=== PATIENT | male | born 1930 | race Caucasian/White ===

== ENCOUNTER 2016-11-27 20:14 | Inpatient (IN) | payer MEDICARE ==
[2016-11-27] MEDS ORDERED: SODIUM CHLORIDE 0.9% 1,000 ML IV STA (20:52)
[2016-11-27] MEDS ORDERED: FUROSEMIDE 10 MG/ML 4 ML VIAL IV STA (20:53)
--- NOTE | 2016-11-27 20:56 | ED ---
SOB HPI - General Chief Complaint: Shortness of Breath Stated Complaint: SOB/bloated/weak Time Seen by Provider: 11/27/16 20:40 Source: patient, RN notes reviewed Mode of arrival: EMS Limitations: no limitations - History of Present Illness Initial Comments: This is a 86-year-old male history of CHF who is brought in because of increasing shortness of breath exertional dyspnea and edema to his lower extremities no ascending up in his abdomen. He denies any fevers chills sweats chest pain he denies any history of COPD he does have a history of CHF. He denies any palpitations or syncope after 7-10 days but much worse today. He denies any other complaints at this time MD Complaint: shortness of breath - Related Data Home Medications Medication Instructions Recorded Confirmed Allopurinol [Zyloprim] 100 mg PO BID 12/12/14 11/27/16 Pravastatin Sodium [Pravachol] 20 mg PO HS 12/12/14 11/27/16 Timolol 0.5% Ophth Soln [Timoptic 1 drop LEFT EYE QAM 12/12/14 11/27/16 0.5% Ophth Soln] Sennosides-Docusate Sodium 1 tab PO HS 10/26/15 11/27/16 [Senokot-S] Furosemide [Lasix] 100 mg PO DAILY 01/30/16 11/27/16 ALPRAZolam [Xanax] 0.25 mg PO TID PRN 01/31/16 11/27/16 Nitroglycerin Sl Tabs [Nitrostat] 0.4 mg SUBLINGUAL Q5M PRN 01/31/16 11/27/16 Bisacodyl [Dulcolax] 5 mg PO HS 11/27/16 11/27/16 Calcium Acetate [Phoslo] 667 mg PO W/BRKFST 11/27/16 11/27/16 Epoetin Osiel [Procrit] 20,000 unit SQ TH 11/27/16 11/27/16 Folic Acid 0.8 mg PO DAILY 11/27/16 11/27/16 Latanoprost [Xalatan 0.005%] 1 drop BOTH EYES HS 11/27/16 11/27/16 Multivitamins, Thera [Multivitamin 1 tab PO DAILY 11/27/16 11/27/16 (formulary)] Sodium Chloride 0.65% Nasal [Deep 2 spray EA NOSTRIL QID PRN 11/27/16 11/27/16 Sea (Saline)] Thiamine [Vitamin B-1] 100 mg PO DAILY 11/27/16 11/27/16 Previous Rx's Medication Instructions Recorded Metoprolol Tartrate [Lopressor] 25 mg PO BID #60 tab 02/03/16 Allergies Allergy/AdvReac Type Severity Reaction Status Date / Time Penicillins Allergy Rash/Hives Verified 11/27/16 20:40 Review of Systems ROS Statement: Those systems with pertinent positive or pertinent negative responses have been documented in the HPI. ROS Other: All systems not noted in ROS Statement are negative. Past Medical History Past Medical History: Atrial Fibrillation, Coronary Artery Disease (CAD), Cancer , Heart Failure, Hyperlipidemia, Hypertension, Osteoarthritis (OA), Prostate Disorder, Renal Disease Additional Past Medical History / Comment(s): melenoma BPH, gout 5 years ago, glaucoma lt eye,"gets freguent nose bleeds", murmur, rhuematic fever age 19, iron deficiency, rt inguinal hernia. History of Any Multi-Drug Resistant Organisms: None Reported Past Surgical History: AICD, Coronary Bypass/CABG, Heart Catheterization, Hernia Repair, Joint Replacement, Orthopedic Surgery, Pacemaker Additional Past Surgical History / Comment(s): carotid, Triple artery bypass in 1978. left knee right hip replacement. Right carotid endartectomy. pt has hernia Past Anesthesia/Blood Transfusion Reactions: No Reported Reaction Additional Past Anesthesia/Blood Transfusion Reaction / Comment(s): blood transfusion-no reaction Type of Cardiac Device: Permanent Pacemaker, AICD Device Placement Date:: 2011 Past Psychological History: No Psychological Hx Reported Smoking Status: Former smoker Past Alcohol Use History: None Reported Additional Past Alcohol Use History / Comment(s): started smoking here and there at age 16 but strted smoking daily at age 22 1ppd, quit age 36 Past Drug Use History: None Reported - Past Family History Father Family Medical History: Coronary Artery Disease (CAD), CVA/TIA Additional Family Medical History / Comment(s): CABG Mother Family Medical History: Congestive Heart Failure (CHF), CVA/TIA, Hypertension Brother(s) Family Medical History: Congestive Heart Failure (CHF) Additional Family Medical History / Comment(s): CABG, valve replacement General Exam - General Exam Comments Initial Comments: This is a well-developed well-nourished awake alert oriented 3 male Limitations: no limitations General appearance: alert, in no apparent distress Head exam: Present: atraumatic, normocephalic, normal inspection Eye exam: Present: normal appearance, PERRL, EOMI. Absent: scleral icterus, conjunctival injection, periorbital swelling ENT exam: Present: normal exam, mucous membranes moist Neck exam: Present: normal inspection. Absent: tenderness, meningismus, lymphadenopathy Respiratory exam: Present: rales (Slight basilar rales patient does demonstrate kyphosis), decreased breath sounds. Absent: respiratory distress, wheezes, rhonchi, stridor Cardiovascular Exam: Present: regular rate, normal rhythm, normal heart sounds. Absent: systolic murmur, diastolic murmur, rubs, gallop, clicks GI/Abdominal exam: Present: soft, distended, normal bowel sounds. Absent: tenderness, guarding, rebound, rigid, bruit, pulsatile mass, hernia Rectal exam: Present: deferred Extremities exam: Present: normal inspection, full ROM, normal capillary refill , pedal edema (+2 pedal edema to the knees.). Absent: tenderness, joint swelling, calf tenderness Back exam: Present: normal inspection Neurological exam: Present: alert, oriented X3, CN II-XII intact Psychiatric exam: Present: normal affect, normal mood Skin exam: Present: warm, dry, intact, normal color. Absent: rash Course Vital Signs 11/27/16 11/27/16 11/27/16 20:21 20:46 21:54 Temperature 97.5 F L 97.3 F L Pulse Rate 61 64 Respiratory 18 18 18 Rate Blood Pressure 112/62 121/57 O2 Sat by Pulse 100 100 Oximetry 11/27/16 23:15 Temperature 97.1 F L Pulse Rate 63 Respiratory 18 Rate Blood Pressure 131/63 O2 Sat by Pulse 97 Oximetry - Reevaluation(s) Reevaluation #1: 11/27/16 21:01 Of note the patient did recently start a regimen of Procrit for anemia within the last couple weeks. Reevaluation #2: 11/27/16 23:44 Patient did not get much relief so far with the medication was rendered. Medical Decision Making - Medical Decision Making I did discuss the findings with the patient and his . Patient does demonstrate evidence of congestive heart failure. And treatment. - Lab Data Result diagrams: 11/27/16 20:40 11/27/16 20:40 Lab Results 11/27/16 11/27/16 11/27/16 Range/Units 20:40 20:40 20:40 WBC 6.8 (3.8-10.6) k/uL RBC 2.77 L (4.30-5.90) m/uL Hgb 9.9 L (13.0-17.5) gm/dL Hct 30.2 L (39.0-53.0) % MCV 108.9 H (80.0-100.0) fL MCH 35.6 H (25.0-35.0) pg MCHC 32.7 (31.0-37.0) g/dL RDW 21.6 H (11.5-15.5) % Plt Count 93 L (150-450) k/uL Neutrophils % 80 % Lymphocytes % 9 % Monocytes % 6 % Eosinophils % 1 % Basophils % 0 % Neutrophils # 5.4 (1.3-7.7) k/uL Lymphocytes # 0.6 L (1.0-4.8) k/uL Monocytes # 0.4 (0-1.0) k/uL Eosinophils # 0.1 (0-0.7) k/uL Basophils # 0.0 (0-0.2) k/uL Manual Slide Review Performed Hypochromasia Slight Poikilocytosis Slight Anisocytosis Moderate Macrocytosis Marked PT (9.0-12.0) sec INR (<1.1) APTT (22.0-30.0) sec Sodium 137 (137-145) mmol/L Potassium 3.8 (3.5-5.1) mmol/L Chloride 99 (98-107) mmol/L Carbon Dioxide 24 (22-30) mmol/L Anion Gap 14 mmol/L BUN 107 H* (9-20) mg/dL Creatinine 2.40 H (0.66-1.25) mg/dL Est GFR (MDRD) Af Amer 31 (>60 ml/min/1.73 sqM) Est GFR (MDRD) Non-Af 26 (>60 ml/min/1.73 sqM) Glucose 107 H (74-99) mg/dL Calcium 9.6 (8.4-10.2) mg/dL Magnesium 2.3 (1.6-2.3) mg/dL Total Bilirubin 1.6 H (0.2-1.3) mg/dL AST 27 (17-59) U/L ALT 26 (21-72) U/L Alkaline Phosphatase 85 (38-126) U/L Total Creatine Kinase 43 L (55-170) U/L CK-MB (CK-2) 2.8 H* (0.0-2.4) ng/mL CK-MB (CK-2) Rel Index 6.5 Troponin I 0.060 H* (0.000-0.034) ng/mL NT-Pro-B Natriuret Pep pg/mL Total Protein 7.0 (6.3-8.2) g/dL Albumin 3.5 (3.5-5.0) g/dL 11/27/16 11/27/16 Range/Units 20:40 20:40 WBC (3.8-10.6) k/uL RBC (4.30-5.90) m/uL Hgb (13.0-17.5) gm/dL Hct (39.0-53.0) % MCV (80.0-100.0) fL MCH (25.0-35.0) pg MCHC (31.0-37.0) g/dL RDW (11.5-15.5) % Plt Count (150-450) k/uL Neutrophils % % Lymphocytes % % Monocytes % % Eosinophils % % Basophils % % Neutrophils # (1.3-7.7) k/uL Lymphocytes # (1.0-4.8) k/uL Monocytes # (0-1.0) k/uL Eosinophils # (0-0.7) k/uL Basophils # (0-0.2) k/uL Manual Slide Review Hypochromasia Poikilocytosis Anisocytosis Macrocytosis PT 29.9 H (9.0-12.0) sec INR 3.1 (<1.1) APTT 46.7 H (22.0-30.0) sec Sodium (137-145) mmol/L Potassium (3.5-5.1) mmol/L Chloride (98-107) mmol/L Carbon Dioxide (22-30) mmol/L Anion Gap mmol/L BUN (9-20) mg/dL Creatinine (0.66-1.25) mg/dL Est GFR (MDRD) Af Amer (>60 ml/min/1.73 sqM) Est GFR (MDRD) Non-Af (>60 ml/min/1.73 sqM) Glucose (74-99) mg/dL Calcium (8.4-10.2) mg/dL Magnesium (1.6-2.3) mg/dL Total Bilirubin (0.2-1.3) mg/dL AST (17-59) U/L ALT (21-72) U/L Alkaline Phosphatase (38-126) U/L Total Creatine Kinase (55-170) U/L CK-MB (CK-2) (0.0-2.4) ng/mL CK-MB (CK-2) Rel Index Troponin I (0.000-0.034) ng/mL NT-Pro-B Natriuret Pep 27575 pg/mL Total Protein (6.3-8.2) g/dL Albumin (3.5-5.0) g/dL - EKG Data -: EKG Interpreted by Me (Paced rhythm of 66 QRS of 172 QT/QTC of 5:30/555 unifocal PVC noted. No ac) - Radiology Data Radiology results: report reviewed (I did review the imaging and report is evidence of heart failure with small right pleural effusion.), image reviewed Critical Care Time Critical Care Time: Yes Critical Care Time: 31 minutes of critical care time which includes initial presentation with history physical labs and x-rays reevaluation the patient response to therapy. Discussion with the patient has regarding findings discussed with the evening physician admission orders and documentation of the above. Disposition Clinical Impression: Congestive heart failure (CHF), Renal insufficiency syndrome, Elevated troponin , Chronic anemia Disposition: ADMITTED IP TO THIS [facility] Condition: Stable Referrals: Abad Blair DO [Primary Care Provider] - 1-2 days
[2016-11-27 21:07] LABS: Anisocytosis Moderate; Basophils % (A) 0 %; CH 35.2; CHCM 32.8; Eosinophils # (A) 0.1 k/uL (0-0.7); Eosinophils % (A) 1 %; HCT 30.2 % (39.0-53.0); HGB 9.9 gm/dL (13.0-17.5); Hypochromasia Slight; Luc # (Auto) 0.27; Luc % (Auto) 4; Lymphocytes # (A) 0.6 k/uL (1.0-4.8); Lymphocytes % (A) 9 %; MCH 35.6 pg (25.0-35.0); MCHC 32.7 g/dL (31.0-37.0); MCV 108.9 fL (80.0-100.0); Macrocytosis Marked; Mean Platelet Volume 8.7; Monocytes # (A) 0.4 k/uL (0-1.0); Monocytes % (A) 6 %; Neutrophils # (A) 5.4 k/uL (1.3-7.7); Neutrophils % (A) 80 %; Poikilocytosis Slight; RBC 2.77 m/uL (4.30-5.90); RDW 21.6 % (11.5-15.5); WBC 6.8 k/uL (3.8-10.6); WBC (Perox) 6.93
--- NOTE | 2016-11-27 21:17 | XR ---
EXAMINATION TYPE: XR chest 2V DATE OF EXAM: 11/27/2016 9:11 PM COMPARISON: 816 HISTORY: Short of breath TECHNIQUE: Frontal and lateral views of the chest are obtained. FINDINGS: Heart is enlarged. There is some mild pulmonary vascular congestion. There is slight blunt ing of right costophrenic angle. There is a left axillary pacemaker with lead tips in the right ventr icle. Thoracic aorta is atheromatous. There are sternal wires. IMPRESSION: Mild heart failure with small right pleural effusion. Chest appears slightly worse than last exam.
[2016-11-27 21:18] LABS: Calcium 9.6 mg/dL (8.4-10.2); Magnesium 2.3 mg/dL (1.6-2.3); Potassium 3.8 mmol/L (3.5-5.1); Total Bilirubin 1.6 mg/dL (0.2-1.3)
[2016-11-27 21:20] LABS: INR 3.1 (<1.1); Prothrombin Time 29.9 sec (9.0-12.0)
[2016-11-27 21:21] LABS: Partial Thromboplastin Time 46.7 sec (22.0-30.0)
[2016-11-27 21:27] LABS: Manual Review Performed
[2016-11-27 21:50] LABS: Creatine Kinase MB 2.8 ng/mL (0.0-2.4)
[2016-11-27 21:51] LABS: Troponin I 0.06 ng/mL (0.000-0.034)
[2016-11-27] MEDS ORDERED: SODIUM CHLORIDE 0.65% NASAL SPRAY 44 ML BTL NASAL PRN (23:48)
[2016-11-28] MEDS ORDERED: SENNOSIDES-DOCUSATE SODIUM 1 EACH TAB PO ONE (01:57)
[2016-11-28] MEDS ORDERED: BISACODYL 5 MG TABLET.DR PO ONE (01:57)
[2016-11-28] MEDS: SENNOSIDES-DOCUSATE SODIUM 1 EACH TAB PO SCH ×2 (02:06→20:28)
[2016-11-28] MEDS: BISACODYL 5 MG TABLET.DR PO SCH ×2 (02:06→20:34)
[2016-11-28] MEDS: FUROSEMIDE 10 MG/ML 4 ML VIAL IV SCH ×3 (02:06→23:06)
[2016-11-28] MEDS: PRAVASTATIN SODIUM 20 MG TAB PO SCH ×2 (02:06→20:28)
[2016-11-28] MEDS: SODIUM CHLORIDE 0.9% 1,000 ML IV SCH ×2 (02:07→23:07)
[2016-11-28] MEDS: CALCIUM ACETATE 667 MG CAP PO SCH (06:54)
[2016-11-28 08:52] LABS: Anisocytosis Moderate; Basophils % (A) 0 %; CH 34.9; CHCM 31.7; Eosinophils # (A) 0.1 k/uL (0-0.7); Eosinophils % (A) 1 %; HCT 28.4 % (39.0-53.0); HDW 3.81; HGB 8.9 gm/dL (13.0-17.5); Hypochromasia Marked; Luc # (Auto) 0.22; Luc % (Auto) 4; Lymphocytes # (A) 0.6 k/uL (1.0-4.8); Lymphocytes % (A) 11 %; MCH 34.9 pg (25.0-35.0); MCHC 31.3 g/dL (31.0-37.0); MCV 111.5 fL (80.0-100.0); Macrocytosis Marked; Mean Platelet Volume 9.6; Monocytes # (A) 0.3 k/uL (0-1.0); Monocytes % (A) 6 %; Neutrophils # (A) 4.2 k/uL (1.3-7.7); Neutrophils % (A) 77 %; Poikilocytosis Slight; RBC 2.55 m/uL (4.30-5.90); RDW 21.8 % (11.5-15.5); WBC 5.5 k/uL (3.8-10.6); WBC (Perox) 5.72
[2016-11-28] MEDS ORDERED: ENOXAPARIN 40 MG/0.4 ML SYRINGE SQ SCH (09:00)
[2016-11-28 09:09] LABS: Calcium 8.9 mg/dL (8.4-10.2); Potassium 3.5 mmol/L (3.5-5.1)
[2016-11-28] MEDS: ALLOPURINOL 100 MG TAB PO SCH ×2 (09:15→20:28)
[2016-11-28] MEDS: FOLIC ACID 1 MG TAB PO SCH (09:15)
[2016-11-28] MEDS: METOPROLOL TARTRATE 25 MG TAB PO SCH ×2 (09:15→20:28)
--- NOTE | 2016-11-28 09:42 | CONS ---
DATE OF CONSULTATION: Imer is an 86-year-old gentleman who is admitted to hospital with shortness of breath, leg edema and exertional fatigue. His BNP is elevated and he has known history of chronic systolic heart failure. BNP is 39,000. At the time of my evaluation this morning, he is pain free, hemodynamically stable and in no apparent distress. Past medical history is significant for coronary artery disease, status post CABG, ischemic cardiomyopathy, status post AICD, chronic renal insufficiency, right endarterectomy, and left knee arthroplasty. Medications at home include Timoptic, thiamine, Pravachol, Lopressor 25 b.i.d., Lasix 100 mg daily, folic acid 0.8, PhosLo, Dulcolax, Zyloprim and Xanax. The patient is allergic to PENICILLIN. Family history is negative for premature coronary artery disease. Social history is negative for current smoking, EtOH abuse, or drug abuse. REVIEW OF SYSTEMS: HEENT: Unremarkable. CARDIAC: As described above. RESPIRATORY: As described above. GI: Negative. GENITOURINARY: Negative. ALLERGY/IMMUNOLOGY: Negative. MUSCULOSKELETAL: Significant for arthritis. PSYCHOSOCIAL: Negative. ENDOCRINE: Negative. HEMATOLOGIC: Negative. DERMATOLOGY: Negative. CONSTITUTIONAL: Negative. ONCOLOGICAL: Negative. The rest of the system review is not relevant. On exam, patient is afebrile, heart rate is 56 beats per minute, blood pressure 106/61, respirations 18. There is no jugular venous distention. Carotid upstroke is normal. Chest exam reveals good air entry bilaterally. Heart exam reveals first and second heart sounds. Systolic murmur at the left lower sternal border. Abdomen is soft. Exam of the extremities did not reveal any edema. Peripheral pulses are felt. Patient had an echo done last year that showed severe LV systolic dysfunction. Labs show that he is anemic at 8.9. INR is 3.1. Troponins are mildly elevated and BNP is 39,000. ASSESSMENT: 1. Acute exacerbation of chronic systolic heart failure. 2. Coronary artery disease, status post CABG. 3. Ischemic cardiomyopathy, status post AICD. 4. History of atrial fibrillation. PLAN: I will continue the patient on Lasix 40 mg IV q.12. Continue the beta blockers. Continue the statin. I am not adding an PHIL inhibitor given the renal failure with elevated BUN and creatinine.
--- NOTE | 2016-11-28 10:04 | ECHOF ---
Referral Reason:chf MEASUREMENTS -------- HEIGHT: 167.6 cm WEIGHT: 68.5 kg BP: 106/61 RVIDd: 3.9 cm (< 3.3) IVSd: 1.3 cm (0.6 - 1.1) LVIDd: 5.3 cm (3.9 - 5.3) LVPWd: 1.3 cm (0.6 - 1.1) IVSs: 1.5 cm LVIDs: 4.7 cm LVPWs: 1.8 cm LA Diam: 5.1 cm (2.7 - 3.8) LAESV Index (A-L): 47.10 ml/m Ao Diam: 3.9 cm (2.0 - 3.7) AV Cusp: 2.1 cm (1.5 - 2.6) MV EXCURSION: 19.783 mm (> 18.000) MV EF SLOPE: 77 mm/s (70 - 150) EPSS: 1.4 cm AR PHT: 670 ms RAP: 5.00 mmHg RVSP: 48.77 mmHg FINDINGS -------- Pacerwire seen in RV and RA. AICD This was a technically good study. The left ventricular size is normal. There is mild concentric left ventricular hypertrophy. Overall left ventricular systolic function is severely impaired with, an EF between 20 - 25 %. The right ventricle is moderately enlarged. LA is severely dilated >40 ml/m2 The right atrium is normal in size. Aortic valve is trileaflet and is mildly thickened. There is mild aortic regurgitation. Mild mitral annular calcification present. [id number] mitral regurgitation is present. Moderate to severe tricuspid regurgitation present. There is moderate pulmonary hypertension. The right ventricular systolic pressure, as measured by Doppler, is 48.77mmHg. Moderate pulmonic regurgitation. The aortic root is dilated measuring 3.9cm. The pericardium is normal. CONCLUSIONS -------- 1. Pacerwire seen in RV and RA. 2. There is mild aortic regurgitation. 3. Mild mitral annular calcification present. 4. [id number] mitral regurgitation is present. 5. Moderate to severe tricuspid regurgitation present. 6. There is moderate pulmonary hypertension. 7. The right ventricular systolic pressure, as measured by Doppler, is 48.77mmHg. 8. Moderate pulmonic regurgitation. 9. The aortic root is dilated measuring 3.9cm. 10. The pericardium is normal. 11. AICD 12. This was a technically good study. 13. The left ventricular size is normal. 14. There is mild concentric left ventricular hypertrophy. 15. Overall left ventricular systolic function is severely impaired with, an EF between 20 - 25 %. 16. The right ventricle is moderately enlarged. 17. LA is severely dilated >40 ml/m2 18. Aortic valve is trileaflet and is mildly thickened. OPERATING TABLE ASSEMBLER: Darlene Doty RDCS
[2016-11-28] MEDS: TIMOLOL 0.5% OPHTH DROPS 5 ML BTL LEFT EYE SCH (11:24)
[2016-11-28] MEDS: THIAMINE 100 MG TAB PO SCH (11:25)
[2016-11-28] MEDS: MULTIVITAMINS, THERA 1 EACH TAB PO SCH (11:25)
[2016-11-28] MEDS: NITROGLYCERIN OINT 1 INCH/GM PACKET TOPICAL SCH ×4 (11:31→20:29)
--- NOTE | 2016-11-28 13:50 | HP ---
DATE OF ADMISSION: 11/27/2016 PRESENTING COMPLAINT: Short of breath. HISTORY OF PRESENTING COMPLAINT: A very pleasant 86-year-old patient of Dr. Abad Guillory with a rather extensive medical history. Patient presents with 10 days of worsening short of breath, uses about 2 or 3 pillows, increasing edema, found to be in congestive heart failure. Patient has a very slight cough. Had a decreased appetite, given Lasix to which he feeling a bit better. Patient's chronic stable medical conditions include atrial fibrillation, coronary artery disease, hyperlipidemia, hypertension, osteoarthritis, prostate disorder, chronic kidney disease, gout. Patient also has got an AICD in place. REVIEW OF SYSTEMS: CONSTITUTIONAL: Weak and tired. HEENT: Decreased hearing. RESPIRATORY: As above. CARDIOVASCULAR: As above. GASTROINTESTINAL: None. GENITOURINARY: None. MUSCULOSKELETAL: Aches and pains in the joints. DERMATOLOGICAL: Some bruising. HEMATOLOGICAL: None. LYMPHATIC: None. PSYCHIATRY: None. NEUROLOGICAL: None. PAST MEDICAL HISTORY: Atrial fibrillation, coronary artery disease, congestive heart failure, hyperlipidemia, hypertension, osteoarthritis, prostate disorder, renal disease, melanoma, BPH, gout, glaucoma, frequent epistaxis, rheumatic fever at age of 19, right inguinal hernia. PAST SURGICAL HISTORY: AICD, coronary artery bypass, cardiac cath, joint replacement, pacemaker, left knee and right hip replacement, right carotid endarterectomy. SOCIAL HISTORY: Does not smoke. Alcohol occasionally. , uses a cane. FAMILY HISTORY: Coronary artery disease, stroke. HOME MEDICATIONS: 1. Procrit 20,000 units subQ . 2. Timoptic 0.5% 1 drop to left eye in the morning. 3. Thiamine 100 mg p.o. daily. 4. Saline two sprays each nostril q.i.d. p.r.n. 5. Senokot-S 1 tablet p.o. q.h.s. 6. Pravachol 20 mg q.h.s. 7. Nitrostat 0.4 sublingual q.5 p.r.n. 8. Multivitamin 1 tablet p.o. daily. 9. Lopressor 25 p.o. b.i.d. 10. Xalatan 0.005% 1 drop in both eyes q.h.s. 11. Lasix 100 mg p.o. daily. 12. Folic acid 0.8 mg p.o. daily. 13. PhosLo 667 p.o. with breakfast. 14. Dulcolax 5 mg p.o. q.h.s. 15. Allopurinol 100 mg p.o. b.i.d. 16. Xanax 0.25 p.o. t.i.d. p.r.n. Allergies to PENICILLIN. PHYSICAL EXAMINATION: Vital signs on admission, temperature 97.5, pulse 55, respirations 18, blood pressure 112/62, pulse ox 100% on room air. GENERAL APPEARANCE: Average build, sitting up, tired-appearing. EYES: Pupils equal. Conjunctivae are normal. HEENT: Oral cavity normal. NECK: JVD raised. Mass not palpable. RESPIRATORY: Effort increased. LUNGS: Basal crackles. CARDIOVASCULAR: First and second sounds normal. Edema present. ABDOMEN: Soft, nontender. Liver and spleen not palpable. LYMPHATIC: No lymph node palpable in neck or axillae. PSYCHIATRY: Alert and oriented x3. Mood and affect normal. MUSCULOSKELETAL: Evidence of osteoarthritis in multiple joints. NEUROLOGICAL: Pupils equal. Cranial nerves grossly intact. Power and sensation grossly intact. INVESTIGATIONS: White count 6.8, hemoglobin 9.9, platelets 93, INR 3.1. Potassium 3.8, BUN 107, creatinine 2.4, troponin 0.060, proBNP 39,100. Chest x-ray, some elevation of the right diaphragm, cardiomegaly, some venous prominence. A 2-D echocardiogram shows moderate to severe tricuspid regurgitation, moderate pulmonary hypertension, moderate pulmonic regurgitation, AICD, EF 20% to 25%. ASSESSMENT: 1. Acute on chronic congestive heart failure exacerbation from systolic dysfunction; ejection fraction 20% to 25%, from underlying coronary artery disease. 2. Morbid pulmonic regurgitation, nonrheumatic. 3. Moderate pulmonary hypertension. 4. Moderate to severe tricuspid regurgitation, nonrheumatic. 5. Coronary artery disease with prior history coronary artery bypass. 6. Hyperlipidemia. 7. Essential hypertension. 8. Primary osteoarthritis of multiple joints. 9. Benign prostatic hypertrophy. 10. 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 11. Chronic gout. 12. Right inguinal hernia. PLAN: Patient was started on IV Lasix. Home medication are resumed. Electrolytes will be followed closely with bradycardia and a Nephrology opinion. Overall prognosis is guarded, given patient's age and multiple comorbidities. Care was discussed with the patient.
[2016-11-28 14:16] VITALS: BMI 24.3
[2016-11-28] MEDS: LATANOPROST 0.005% OPHTH DROPS 2.5 ML BTL BOTH EYES SCH (22:01)
[2016-11-29 06:27] LABS: Anisocytosis Moderate; Basophils % (A) 0 %; CHCM 31.3; Eosinophils # (A) 0.1 k/uL (0-0.7); Eosinophils % (A) 1 %; HCT 31.1 % (39.0-53.0); HDW 3.55; HGB 9.4 gm/dL (13.0-17.5); Hypochromasia Marked; Luc # (Auto) 0.24; Luc % (Auto) 4; Lymphocytes # (A) 0.6 k/uL (1.0-4.8); Lymphocytes % (A) 9 %; MCH 34.3 pg (25.0-35.0); MCHC 30.2 g/dL (31.0-37.0); MCV 113.5 fL (80.0-100.0); Macrocytosis Marked; Mean Platelet Volume 9.6; Monocytes # (A) 0.3 k/uL (0-1.0); Monocytes % (A) 5 %; Neutrophils % (A) 81 %; Poikilocytosis Slight; RBC 2.74 m/uL (4.30-5.90); RDW 21.7 % (11.5-15.5); WBC 6.2 k/uL (3.8-10.6); WBC (Perox) 6.29
[2016-11-29 06:46] LABS: Calcium 9.8 mg/dL (8.4-10.2); Potassium 3.7 mmol/L (3.5-5.1)
[2016-11-29] MEDS: CALCIUM ACETATE 667 MG CAP PO SCH (07:01)
[2016-11-29 07:28] LABS: Polychromasia Present; Target Cells Present
[2016-11-29 07:30] LABS: Manual Review Performed
[2016-11-29] MEDS: FOLIC ACID 1 MG TAB PO SCH (07:48)
[2016-11-29] MEDS: METOPROLOL TARTRATE 25 MG TAB PO SCH ×2 (07:48→20:29)
[2016-11-29] MEDS: ALLOPURINOL 100 MG TAB PO SCH ×2 (07:48→20:29)
[2016-11-29] MEDS: NITROGLYCERIN OINT 1 INCH/GM PACKET TOPICAL SCH ×4 (07:48→20:39)
[2016-11-29] MEDS: TIMOLOL 0.5% OPHTH DROPS 5 ML BTL LEFT EYE SCH (07:48)
[2016-11-29] MEDS: ENOXAPARIN 30 MG/0.3 ML SYRINGE SQ SCH (07:49)
[2016-11-29] MEDS: FUROSEMIDE 10 MG/ML 4 ML VIAL IV SCH ×2 (11:37→20:29)
[2016-11-29] MEDS: THIAMINE 100 MG TAB PO SCH (11:37)
[2016-11-29] MEDS: MULTIVITAMINS, THERA 1 EACH TAB PO SCH (11:37)
--- NOTE | 2016-11-29 11:54 | PN ---
DATE OF SERVICE: 11/29/2016 PRESENTING COMPLAINT: Shortness of breath. INTERVAL HISTORY: This is a patient who presented with acute on chronic exacerbation of congestive heart failure. Today patient is sitting up in the bed, breathing easily, tolerating his diet, able to walk to and from the bathroom on his own with no assistance. States he feels 60% better since he was admitted. Review of systems done for constitutional, cardiovascular, GI, and pulmonary and with relevant findings as above. PHYSICAL EXAM: VITAL SIGNS: Temperature 97.1, pulse 65, respirations 16, blood pressure 108/56, oxygen saturation 100% on room air. GENERAL APPEARANCE: Lying in bed, calm, cooperative, breathing easily. EYES: Pupils equal. Conjunctivae are normal. NECK: JVD raised. Mass not palpable. LUNGS: Crackles bilaterally. Respiratory effort normal. CARDIOVASCULAR: First and second sounds noted. Trace edema. ABDOMEN: Soft, nontender. Liver and spleen not palpable. PSYCHIATRY: Alert and oriented x3. Mood and affect are normal. INVESTIGATIONS: Hemoglobin 9.4, platelet count 83, BUN 112, creatinine 2.40. Echocardiogram reveals an EF between 20% and 25%. Patient is ventricular paced with an AICD. ASSESSMENT: 1. Acute on chronic congestive heart failure exacerbation from systolic dysfunction. Ejection fraction 20% to 25%, from underlying coronary artery disease, improving. 2. Morbid pulmonary regurgitation, nonrheumatic. 3. Moderate pulmonary hypertension. 4. Moderate to severe tricuspid regurgitation, nonrheumatic. 5. Coronary artery disease with prior history of coronary artery bypass. 6. Hyperlipidemia. 7. Essential hypertension. 8. Primary osteoarthritis of multiple joints. 9. Benign prosthetic hypertrophy. 10. 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 11. Chronic gout. 12. Right inguinal hernia. PLAN: Patient to remain on IV Lasix today, encouraged to get up walk around. Will continue to follow closely. Patient was seen and examined by nurse practitioner, Marnie Rodrigues, and all elements of the case discussed with attending, Dr. Bergman.
--- NOTE | 2016-11-29 13:44 | P.PN ---
Subjective Principal diagnosis: Congestive heart failure This is an 86-year-old gentleman with history of coronary artery disease and prior bypass surgery, ischemic cardiomyopathy, prior AICD implantation, chronic renal insufficiency, hypertension, hyperlipidemia, who presented to the hospital with symptoms of progressively worsening shortness of breath. He was seen in consultation yesterday by Dr. Vasquez and was initiated on IV Lasix. His weight today is down 1 kg. Hemoglobin 9.4, platelet count 83, potassium 3.7, BUN 112, creatinine 2.4. Patient does state that his breathing is somewhat improved today, continues to have significant peripheral edema. Objective - Vital Signs Vital signs: Vital Signs Temp 97.8 F 11/29/16 12:02 Pulse 65 11/29/16 12:02 Resp 17 11/29/16 12:02 BP 90/55 11/29/16 12:02 Pulse Ox 99 11/29/16 12:02 Intake & Output 11/28/16 11/29/16 11/29/16 18:59 06:59 18:59 Intake Total 200 125 Output Total 800 Balance 200 -800 125 Weight 68.5 kg 67.9 kg Intake: Oral 200 125 Output: Urine 800 Other: Voiding Method Toilet Toilet Toilet Urinal Urinal Urinal # Voids 0 - Exam PHYSICAL EXAMINATION: HEENT: Head is atraumatic, normocephalic. Pupils equal, round. Neck is supple. There is elevated jugular venous pressure. HEART EXAMINATION: Heart S1 and S2 systolic murmur is heard. CHEST EXAMINATION: Lungs are clear with diminished air entry to bilateral bases. ABDOMEN: Soft, nontender. Bowel sounds are heard. No organomegaly noted. EXTREMITIES: 2+ peripheral pulses with 2+ evidence of peripheral edema and no calf tenderness noted. NEUROLOGIC patient is awake, alert and oriented -3. . - Labs CBC & Chem 7: 11/29/16 06:04 11/29/16 06:02 Labs: Abnormal Lab Results - Last 24 Hours (Table) 11/29/16 11/29/16 Range/Units 06:02 06:04 RBC 2.74 L (4.30-5.90) m/uL Hgb 9.4 L (13.0-17.5) gm/dL Hct 31.1 L (39.0-53.0) % MCV 113.5 H (80.0-100.0) fL MCHC 30.2 L (31.0-37.0) g/dL RDW 21.7 H (11.5-15.5) % Plt Count 83 L (150-450) k/uL Lymphocytes # 0.6 L (1.0-4.8) k/uL BUN 112 H* (9-20) mg/dL Creatinine 2.40 H (0.66-1.25) mg/dL Glucose 102 H (74-99) mg/dL Assessment and Plan (1) Systolic CHF, acute on chronic Status: Acute (2) Renal insufficiency syndrome Status: Acute (3) AF (paroxysmal atrial fibrillation) Status: Acute (4) AICD (automatic cardioverter/defibrillator) present Status: Acute (5) Anemia Status: Acute (6) Chronic renal insufficiency Status: Acute (7) Hx of CABG Status: Acute (8) Hyperlipemia Status: Acute (9) Hypertension Status: Acute (10) Ischemic cardiomyopathy Status: Acute Plan: From cardiology's perspective, we will recommend to continue the patient on current dose of IV Lasix. Monitor intake and output along with daily weights closely. Continue to monitor PT/INR's. DNP note has been reviewed, I agree with a documented findings and plan of care. Patient was seen and examined.
[2016-11-29] MEDS: ALPRAZolam 0.25 MG TAB PO PRN (18:07)
[2016-11-29] MEDS: SENNOSIDES-DOCUSATE SODIUM 1 EACH TAB PO SCH (20:29)
[2016-11-29] MEDS: BISACODYL 5 MG TABLET.DR PO SCH (20:29)
[2016-11-29] MEDS: LATANOPROST 0.005% OPHTH DROPS 2.5 ML BTL BOTH EYES SCH (20:29)
[2016-11-29] MEDS: PRAVASTATIN SODIUM 20 MG TAB PO SCH (20:38)
[2016-11-29] MEDS: SODIUM CHLORIDE 0.9% 1,000 ML IV SCH (20:39)
--- NOTE | 2016-11-29 22:13 | CONS ---
DATE OF CONSULTATION: REASON FOR CONSULTATION: Renal failure. HISTORY OF PRESENT ILLNESS: Patient is an 86-year-old white male with history of chronic kidney disease, NKF stage IV, secondary to nephrosclerosis with a baseline creatinine about 1.9 to 2 mg/dL, most recently about 2.3 to 2.4 mg/dL. Recently patient has had significant gastrointestinal bleed as has had significant epistaxis, which resulted in significantly elevated BUN from absorption of the swallowed blood from epistaxis. His BUN; however, is now improved from around 153 to 106 now. Renal function is currently not far from baseline. Patient was admitted this admission with complaints of shortness of breath, increased lower extremity edema and some volume overload. He denied any chest pains. He is currently maintained on Lasix 40 mg IV q.12 hours and states that he is feeling better. Patient is maintained on Lovenox for paroxysmal atrial fibrillation. He has not had any further epistaxis currently. PAST MEDICAL HISTORY: Chronic kidney disease, stage IV, cardiomyopathy, paroxysmal atrial fibrillation, secondary hyperparathyroidism, anemia of chronic disease. CKD bone mineral disorder, coronary artery disease, osteoarthritis, history of iron deficiency and recent severe epistaxis, peripheral vascular disease status post right carotid endarterectomy. Surgeries include right carotid endarterectomy, left knee and the right hip arthroplasty and inguinal hernia repair, coronary artery bypass surgery, AICD placement, pacemaker placement. SOCIAL HISTORY: The patient is an ex-smoker. No history of drug abuse or alcohol abuse. FAMILY HISTORY: Noncontributory. REVIEW OF SYSTEMS: As per HPI. Other systems negative. Medications at home prior to admission included: 1. Zyloprim. 2. Pravachol. 3. Lasix. 4. Xanax. 5. Nitroglycerin. 6. PhosLo. 7. Procrit. 8. Folic acid. 9. Vitamin B1. 10. Lopressor. ALLERGIES INCLUDE PENICILLIN, WHICH CAUSES A RASH/HIVES. On examination, the patient is currently comfortable, awake. He is not in any acute distress alert and oriented x3. Blood pressure is 110/63, heart rate 98 per minute. He is afebrile. Examination of the heart S1 and S2. Examination of the lungs: Bilateral breath sounds are heard. Decreased breath sounds in bases. ABDOMEN: Soft, nontender. Examination of lower extremities shows edema 1+ bilaterally. [employer] exam is grossly intact. Labs show sodium 137, potassium 3.7, BUN 112, serum creatinine 2.4. Hemoglobin 9.4 g/dL. Troponin 0.059. ASSESSMENT: 1. Chronic kidney disease, NKF stage IV, secondary to nephrosclerosis with serum creatinine not far from baseline. The BUN has been disproportionately elevated for about a month now secondary to ongoing epistaxis, and absorption of some on the gastrointestinal tract. The BUN had been significantly high, about 150 to 160 mg/dL, it is now improved. 2. Paroxysmal atrial fibrillation with controlled ventricular response, maintained on Lovenox. 3. Anemia of chronic disease, maintained on Procrit as outpatient. 4. Coronary artery disease, status post coronary artery bypass surgery. 5. Chronic kidney disease bone mineral disorder, currently maintained on PhosLo. 6. Congestive heart failure, volume overload, greatly improved, currently on Lasix 40 mg q.12 hours. PLAN: Continue current dose of Lasix. Possible discharge in the next 24 to 48 hours. May continue current medications and continue with the PhosLo as well. Thank you for this consultation. Will continue to follow the patient with you during his hospitalization.
[2016-11-30] MEDS: ALPRAZolam 0.25 MG TAB PO PRN (01:09)
[2016-11-30 06:12] LABS: Anisocytosis Moderate; Basophils % (A) 0 %; CH 35.2; CHCM 31.5; Eosinophils # (A) 0.1 k/uL (0-0.7); Eosinophils % (A) 1 %; HCT 29.6 % (39.0-53.0); HDW 3.51; HGB 9.1 gm/dL (13.0-17.5); Hypochromasia Moderate; Luc # (Auto) 0.29; Luc % (Auto) 4; Lymphocytes # (A) 0.5 k/uL (1.0-4.8); Lymphocytes % (A) 8 %; MCHC 30.8 g/dL (31.0-37.0); MCV 113.5 fL (80.0-100.0); Macrocytosis Marked; Mean Platelet Volume 10.9; Monocytes # (A) 0.4 k/uL (0-1.0); Monocytes % (A) 6 %; Neutrophils # (A) 5.5 k/uL (1.3-7.7); Neutrophils % (A) 81 %; Poikilocytosis Slight; RBC 2.61 m/uL (4.30-5.90); RDW 21.8 % (11.5-15.5); WBC 6.8 k/uL (3.8-10.6); WBC (Perox) 6.85
[2016-11-30 06:29] LABS: Calcium 9.8 mg/dL (8.4-10.2); Potassium 3.9 mmol/L (3.5-5.1)
[2016-11-30] MEDS: CALCIUM ACETATE 667 MG CAP PO SCH (07:06)
[2016-11-30] MEDS: NITROGLYCERIN OINT 1 INCH/GM PACKET TOPICAL SCH ×2 (08:50→13:13)
[2016-11-30] MEDS: FOLIC ACID 1 MG TAB PO SCH (08:50)
[2016-11-30] MEDS: METOPROLOL TARTRATE 25 MG TAB PO SCH (08:50)
[2016-11-30] MEDS: ENOXAPARIN 30 MG/0.3 ML SYRINGE SQ SCH (08:50)
[2016-11-30] MEDS: TIMOLOL 0.5% OPHTH DROPS 5 ML BTL LEFT EYE SCH (08:50)
[2016-11-30] MEDS: ALLOPURINOL 100 MG TAB PO SCH (08:50)
[2016-11-30 09:24] VITALS: PULSE 64; RESP 18
--- NOTE | 2016-11-30 11:31 | PN ---
DATE OF SERVICE: 11/29/2016 ATTENDING NOTE: This patient was seen and examined by me on 11/29/2016. I reviewed the note of my nurse practitioner, Ms. Rodrigues. Discussed additional findings below. The patient admitted with CHF exacerbation. Breathing is getting better. Still slightly short of breath. Has been up to the bathroom. On examination, blood pressure was 108/56, pulse ox 100% on room air. LUNGS: Lungs decreased crackles. NECK: JVD still mildly raised. Decreased edema. INVESTIGATIONS: Hemoglobin 8.9. BUN 106, creatinine 2.39. ASSESSMENT: 1. Acute on chronic congestive heart failure exacerbation from systolic dysfunction, EF 20-25%, underlying coronary artery disease, improving. 2. Coronary artery disease. 3. 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 PLAN: Continue the patient on IV Lasix. Follow electrolytes closely. Discussed with the patient. Encouraged to be out of bed.
[2016-11-30 12:27] VITALS: BP 112/59; TEMP 98.1
--- NOTE | 2016-11-30 12:34 | PN ---
Patient is seen for followup for chronic kidney disease. He was admitted to the hospital with fluid overload. He has been diuresed. He states he is feeling much better. In view of recent severe epistaxis, there is consideration for discontinuation of anticoagulation which patient was taking for A. Fib. On examination today, blood pressure is 122/61, heart rate 64 per minute. He is afebrile. EXAMINATION OF THE HEART: S1 and S2. EXAMINATION OF THE LUNGS: Bilateral breath sounds are heard. No crackles or wheezing is heard. ABDOMEN: Soft, nontender. Examination of lower extremities shows edema 2+ bilaterally, currently improved. [employer] exam is grossly intact. Labs show sodium 137, potassium 3.9, BUN 113, serum creatinine 2.73. Hemoglobin at 9.1 g/dL. ASSESSMENT: 1. Chronic kidney disease stage IV, renal function not far from baseline. 2. Fluid overload, currently improved. Patient is maintained on IV Lasix 40 mg q.12 hours, being switched over to 60 mg p.o. b.i.d. which is appropriate. We will follow as outpatient with repeat labs to be done as outpatient. 3. Hypertension, currently controlled. 4. Hyperphosphatemia, maintained on PhosLo, which we can continue. 5. Hyperuricemia/gout, maintained on allopurinol. PLAN: Agree with switching to p.o. Lasix. Consider discontinuation of anticoagulation. Patient can be discharged from nephrology standpoint and follow up as outpatient in about 2 to 3 weeks' time with repeat labs to be done as outpatient.
[2016-11-30] MEDS: THIAMINE 100 MG TAB PO SCH (13:13)
[2016-11-30] MEDS: MULTIVITAMINS, THERA 1 EACH TAB PO SCH (13:13)
--- NOTE | 2016-11-30 13:22 | P.PN ---
Subjective Principal diagnosis: Congestive heart failure This is an 86-year-old gentleman with history of coronary artery disease and prior bypass surgery, ischemic cardiomyopathy, prior AICD implantation, chronic renal insufficiency, hypertension, hyperlipidemia, who presented to the hospital with symptoms of progressively worsening shortness of breath. He was seen in consultation by Dr. Vasquez and was initiated on IV Lasix. Hemoglobin 9.1, platelet count 82, potassium 3.9, BUN 113, creatinine 2.7. Patient does state that his breathing is improved significantly today, continues to have peripheral edema however much improved. Patient was on Coumadin at home for anticoagulation, he did have 2 episodes of epistaxis, however he did just have a follow-up appointment with Dr. Heart in the office this past week and was instructed to continue taking Coumadin. If patient has further episodes of epistaxis and it is severe, then the Coumadin at that time will be discontinued. Objective - Vital Signs Vital signs: Vital Signs Temp 97.9 F 11/30/16 08:00 Pulse 64 11/30/16 08:00 Resp 18 11/30/16 08:00 BP 122/61 11/30/16 08:00 Pulse Ox 93 L 11/30/16 08:00 Intake & Output 11/29/16 11/30/16 11/30/16 18:59 06:59 18:59 Intake Total 225 10 240 Output Total 100 150 Balance 225 -90 90 Weight 68.4 kg Intake: IV 10 Sodium Chloride 0.9% 1, 10 000 ml @ 20 mls/hr IV . Q24H SARAHI Rx#:[id number] Oral 225 240 Output: Urine 100 150 Other: Voiding Method Toilet Toilet Toilet Urinal Urinal Urinal # Voids 2 1 - Exam PHYSICAL EXAMINATION: HEENT: Head is atraumatic, normocephalic. Pupils equal, round. Neck is supple. There is elevated jugular venous pressure. HEART EXAMINATION: Heart S1 and S2 systolic murmur is heard. CHEST EXAMINATION: Lungs are clear with diminished air entry to bilateral bases. ABDOMEN: Soft, nontender. Bowel sounds are heard. No organomegaly noted. EXTREMITIES: 2+ peripheral pulses with trace to 1+ evidence of peripheral edema and no calf tenderness noted. NEUROLOGIC patient is awake, alert and oriented -3. . - Labs CBC & Chem 7: 11/30/16 05:45 11/30/16 05:45 Labs: Abnormal Lab Results - Last 24 Hours (Table) 11/30/16 11/30/16 Range/Units 05:45 05:45 RBC 2.61 L (4.30-5.90) m/uL Hgb 9.1 L (13.0-17.5) gm/dL Hct 29.6 L (39.0-53.0) % MCV 113.5 H (80.0-100.0) fL MCHC 30.8 L (31.0-37.0) g/dL RDW 21.8 H (11.5-15.5) % Plt Count 82 L (150-450) k/uL Lymphocytes # 0.5 L (1.0-4.8) k/uL BUN 113 H* (9-20) mg/dL Creatinine 2.73 H (0.66-1.25) mg/dL Assessment and Plan (1) Systolic CHF, acute on chronic Status: Acute (2) Renal insufficiency syndrome Status: Acute (3) AF (paroxysmal atrial fibrillation) Status: Acute (4) AICD (automatic cardioverter/defibrillator) present Status: Acute (5) Anemia Status: Acute (6) Chronic renal insufficiency Status: Acute (7) Hx of CABG Status: Acute (8) Hyperlipemia Status: Acute (9) Hypertension Status: Acute (10) Ischemic cardiomyopathy Status: Acute Plan: From cardiology's perspective, we will recommend to his continue IV Lasix and put the patient on oral diuretics. Resume Coumadin 1 mg daily, check PT/INR on Monday. Follow-up appointment with Dr. Heart. DNP note has been reviewed, I agree with a documented findings and plan of care. Patient was seen and examined.
[2016-11-30] MEDS ORDERED: FUROSEMIDE 20 MG TAB PO SCH (16:00)
[2016-12-01] MEDS ORDERED: SPIRONOLACTONE 25 MG TAB PO SCH (09:00)
--- NOTE | 2016-12-01 14:12 | DS ---
DATE OF ADMISSION: 11/27/2016 DATE OF DISCHARGE: 11/30/2016 FINAL DIAGNOSES: 1. Acute on chronic congestive heart failure exacerbation from systolic dysfunction. Ejection fraction 20% to 25%, from underlying coronary artery disease, improving. 2. Morbid pulmonary regurgitation, nonrheumatic. 3. Moderate pulmonary hypertension. 4. Moderate to severe tricuspid regurgitation, nonrheumatic. 5. Coronary artery disease with prior history of coronary artery bypass. 6. Hyperlipidemia. 7. Essential hypertension. 8. Primary osteoarthritis of multiple joints. 9. Benign prosthetic hypertrophy. 10. 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 11. Chronic gout. 12. Right inguinal hernia. CONSULTANTS: 1. Dr. Yanet Vasquez of Cardiology. 2. Dr. Yanet Nassar of Nephrology. HOSPITAL COURSE: This is a patient who presented to the hospital with symptoms of progressively worsening shortness of breath and received IV Lasix. Breathing improved. Patient states that he feels better than when he arrived. Patient received additional doses of Lasix to optimize his current condition and responded well. Today, patient is not on oxygen, sitting up in a chair, tolerating his diet, walking in the hallway with the use of his cane and some mild assistance from staff. Patient looks and feels well and therefore is being discharged home today. PHYSICAL EXAM: Vital signs stable. Respiratory effort normal. LUNGS: Diffuse crackles heard to the bases, bilaterally. CARDIOVASCULAR: First and second sounds noted. Mild edema noted to the ankles. DISCHARGE MEDICATIONS: 1. Zyloprim 100 mg p.o. b.i.d. 2. Pravastatin. 3. Sodium 20 mg p.o. at bedtime. 4. Atenolol 1 drop left eye q.a.m. 5. Senokot-S 1 tablet p.o. at bedtime. 6. Xanax 0.25 mg p.o. t.i.d. p.r.n. 7. Nitroglycerin sublingual 0.4 mg sublingual q.5 minutes p.r.n. 8. Metoprolol 25 mg p.o. b.i.d. 9. Dulcolax 5 mg p.o. at bedtime. 10. PhosLo 667 mg p.o. with breakfast. 11. Procrit 20,000 units subcutaneously on . 12. Folic acid 0.8 mg p.o. daily. 13. Latanoprost 1 drop both eyes at bedtime. 14. Multivitamin 1 tab p.o. daily. 15. Saline nasal spray 2 sprays each nostril q.i.d. 16. Thiamine 100 mg p.o. daily. 17. Lasix 60 mg p.o. b.i.d. at 9 a.m. and 1600. 18. Spironolactone 25 mg p.o. daily. FOLLOWUP: Patient should follow up with Dr. Abad Guillory in 3 days; Dr. Khadijah Moe of Cardiology on December [address] Yanet Nassar in 10 days. DISPOSITION: Patient is being discharged home to the care of his family. Patient seen and examined by nurse practitioner, Marnie Rodrigues, and all elements of the case discussed with the attending, Dr. Bergman.
--- NOTE | 2016-12-01 20:04 | DS ---
DATE OF ADMISSION: 11/27/2016 DATE OF DISCHARGE: 11/30/2016 ATTENDING NOTE: This patient was seen and examined by me today on 11/30/16. I reviewed the discharge note from my nurse practitioner, Ms. Rodrigues. Discussed and agreed. The patient ( ) doing much better. Because of epistaxis, patient's Coumadin was held. I spoke to Mitra from cardiology, nurse practitioner per Dr. Timoteo Moe, she is going to put the patient back probably on 1 mg of Coumadin. On examination air entry improved, decreased edema. Patient is very keen to go home. More details in my nurse practitioner's note. Discharge planning more than 35 minutes.
== END 2016-11-30 14:48 | disposition home or self-care (01) | DRG 291 ==
LOC: EC 20:14 → 6SEL 23:46
PROVIDERS: ADMIT Hospitalist; ATTEND Hospitalist
DX: I13.0 Hypertensive heart and chronic kidney disease with heart failure and stage 1 through stage 4 chronic kidney disease, or unspecified chronic kidney disease (principal); I50.23 Acute on chronic systolic (congestive) heart failure; N18.4 Chronic kidney disease, stage 4 (severe); N25.81 Secondary hyperparathyroidism of renal origin; I27.2 Other secondary pulmonary hypertension; I48.0 Paroxysmal atrial fibrillation; E83.39 Other disorders of phosphorus metabolism; I25.5 Ischemic cardiomyopathy; I36.1 Nonrheumatic tricuspid (valve) insufficiency; E83.9 Disorder of mineral metabolism, unspecified; D63.8 Anemia in other chronic diseases classified elsewhere; I37.1 Nonrheumatic pulmonary valve insufficiency; I73.9 Peripheral vascular disease, unspecified; I25.10 Atherosclerotic heart disease of native coronary artery without angina pectoris; E78.5 Hyperlipidemia, unspecified; H40.9 Unspecified glaucoma; K40.90 Unilateral inguinal hernia, without obstruction or gangrene, not specified as recurrent; M15.9 Polyosteoarthritis, unspecified; M1A.9XX0 Chronic gout, unspecified, without tophus (tophi); N40.0 Benign prostatic hyperplasia without lower urinary tract symptoms; Z79.899 Other long term (current) drug therapy; Z79.01 Long term (current) use of anticoagulants; Z88.0 Allergy status to penicillin; Z85.820 Personal history of malignant melanoma of skin; Z95.1 Presence of aortocoronary bypass graft; Z95.810 Presence of automatic (implantable) cardiac defibrillator; Z96.641 Presence of right artificial hip joint; Z87.891 Personal history of nicotine dependence; Z96.651 Presence of right artificial knee joint; Z82.49 Family history of ischemic heart disease and other diseases of the circulatory system
CPT/HCPCS: 36415; 71020; 80048; 80053; 82550; 82553; 83735; 83880; 84484; 85025; 85610; 85730; 93005; 93306

== ENCOUNTER 2016-12-28 00:42 | Emergency (ER) | payer MEDICARE ==
[2016-12-28 00:52] VITALS: RESP 18
[2016-12-28] MEDS ORDERED: RX INFO: IV CONTRAST WAS GIVEN 1 EACH MISC MISCELLANE PRN (01:45)
--- NOTE | 2016-12-28 01:55 | ED ---
Abdominal Pain HPI - General Chief Complaint: Abdominal Pain Stated Complaint: hernia,abd pain Time Seen by Provider: 12/28/16 01:28 Source: patient Mode of arrival: wheelchair Limitations: no limitations - History of Present Illness Initial Comments: This patient is an 86-year-old man who presents with abdominal pain that is worst in the right lower quadrant where he states he has had a hernia for a number of years. He also felt like the hernia was getting larger. He was having a little bit of nausea as well. Everything started around 745 tonight. The pain became severe around midnight and he came here to be evaluated. Patient states that the pain is subsequently improving and that time of my exam is minimal. MD Complaint: abdominal pain -: hour(s) (6) Location: RLQ Migration to: no migration Severity: severe Quality: aching Consistency: now resolved Improves With: nothing Worsens With: nothing Associated Symptoms: denies other symptoms - Related Data Home Medications Medication Instructions Recorded Confirmed Allopurinol [Zyloprim] 100 mg PO BID 12/12/14 12/28/16 Pravastatin Sodium [Pravachol] 20 mg PO HS 12/12/14 12/28/16 Timolol 0.5% Ophth Soln [Timoptic 1 drop LEFT EYE QAM 12/12/14 12/28/16 0.5% Ophth Soln] Sennosides-Docusate Sodium 1 tab PO HS 10/26/15 12/28/16 [Senokot-S] ALPRAZolam [Xanax] 0.25 mg PO TID PRN 01/31/16 12/28/16 Nitroglycerin Sl Tabs [Nitrostat] 0.4 mg SUBLINGUAL Q5M PRN 01/31/16 12/28/16 Bisacodyl [Dulcolax] 5 mg PO HS 11/27/16 12/28/16 Calcium Acetate [PhosLo] 667 mg PO W/BRKFST 11/27/16 12/28/16 Epoetin Osiel [Procrit] 20,000 unit SQ TH 11/27/16 12/28/16 Folic Acid 0.8 mg PO DAILY 11/27/16 12/28/16 Latanoprost [Xalatan 0.005%] 1 drop BOTH EYES HS 11/27/16 12/28/16 Multivitamins, Thera [Multivitamin 1 tab PO DAILY 11/27/16 12/28/16 (formulary)] Sodium Chloride 0.65% Nasal [Deep 2 spray EA NOSTRIL QID PRN 11/27/16 12/28/16 Sea (Saline)] Thiamine [Vitamin B-1] 100 mg PO DAILY 11/27/16 12/28/16 Furosemide [Lasix] 40 mg PO BID@0900,1600 12/28/16 12/28/16 Previous Rx's Medication Instructions Recorded Metoprolol Tartrate [Lopressor] 25 mg PO BID #60 tab 02/03/16 Spironolactone [Aldactone] 25 mg PO DAILY #30 tab 11/30/16 Allergies Allergy/AdvReac Type Severity Reaction Status Date / Time Penicillins Allergy Rash/Hives Verified 12/28/16 00:51 Review of Systems ROS Statement: Those systems with pertinent positive or pertinent negative responses have been documented in the HPI. ROS Other: All systems not noted in ROS Statement are negative. Constitutional: Denies: fever, chills ENT: Reports: epistaxis (Patient states she has been having right-sided epistaxis intermittently going back for nearly 2 years. He was taking Coumadin for A. fib and it was stopped because of frequent epistaxis) Respiratory: Denies: cough, dyspnea, wheezes Cardiovascular: Reports: orthopnea. Denies: chest pain, palpitations, dyspnea on exertion, edema Gastrointestinal: Reports: abdominal pain. Denies: vomiting, diarrhea, melena, hematochezia Genitourinary: Denies: dysuria, hematuria Musculoskeletal: Denies: back pain Skin: Denies: rash Neurological: Denies: headache, weakness, numbness Hematological/Lymphatic: Denies: easy bleeding Past Medical History Past Medical History: Atrial Fibrillation, Coronary Artery Disease (CAD), Cancer , Heart Failure, Hyperlipidemia, Hypertension, Osteoarthritis (OA), Prostate Disorder, Renal Disease Additional Past Medical History / Comment(s): melenoma BPH, gout 5 years ago, glaucoma lt eye,"gets freguent nose bleeds", murmur, rhuematic fever age 19, iron deficiency, rt inguinal hernia. History of Any Multi-Drug Resistant Organisms: None Reported Past Surgical History: AICD, Coronary Bypass/CABG, Heart Catheterization, Hernia Repair, Joint Replacement, Orthopedic Surgery, Pacemaker Additional Past Surgical History / Comment(s): carotid, Triple artery bypass in 1978. left knee right hip replacement. Right carotid endartectomy. pt has hernia Past Anesthesia/Blood Transfusion Reactions: No Reported Reaction Additional Past Anesthesia/Blood Transfusion Reaction / Comment(s): blood transfusion-no reaction Type of Cardiac Device: Permanent Pacemaker, AICD Device Placement Date:: 2011 Past Psychological History: No Psychological Hx Reported Smoking Status: Former smoker Past Alcohol Use History: Occasional Past Drug Use History: None Reported - Past Family History Father Family Medical History: Coronary Artery Disease (CAD), CVA/TIA Additional Family Medical History / Comment(s): CABG Mother Family Medical History: Congestive Heart Failure (CHF), CVA/TIA, Hypertension Brother(s) Family Medical History: Congestive Heart Failure (CHF) Additional Family Medical History / Comment(s): CABG, valve replacement General Exam Limitations: no limitations General appearance: alert, in no apparent distress Head exam: Present: atraumatic, normocephalic Eye exam: Present: normal appearance. Absent: scleral icterus, conjunctival injection ENT exam: Present: normal oropharynx Respiratory exam: Present: normal lung sounds bilaterally. Absent: respiratory distress, wheezes, rales, rhonchi, stridor Cardiovascular Exam: Present: regular rate, systolic murmur (Grade 2/6 systolic ejection murmur). Absent: diastolic murmur, rubs, gallop GI/Abdominal exam: Present: soft. Absent: distended, tenderness, guarding, rebound Extremities exam: Present: normal inspection, normal capillary refill. Absent: pedal edema, calf tenderness Back exam: Present: normal inspection. Absent: CVA tenderness (R), CVA tenderness (L) Neurological exam: Present: alert Skin exam: Present: warm, dry, intact, normal color. Absent: rash Course Vital Signs 12/28/16 12/28/16 12/28/16 00:48 02:05 02:58 Temperature 96.9 F L Pulse Rate 61 62 60 Respiratory 18 18 18 Rate Blood Pressure 121/57 109/62 118/56 O2 Sat by Pulse 99 98 98 Oximetry Medical Decision Making - Lab Data Result diagrams: 12/28/16 01:52 12/28/16 01:52 Lab Results 12/28/16 12/28/16 12/28/16 Range/Units 01:52 01:52 02:52 WBC 9.3 (3.8-10.6) k/uL RBC 2.87 L (4.30-5.90) m/uL Hgb 10.4 L (13.0-17.5) gm/dL Hct 31.8 L (39.0-53.0) % MCV 110.9 H (80.0-100.0) fL MCH 36.3 H (25.0-35.0) pg MCHC 32.7 (31.0-37.0) g/dL RDW 19.2 H (11.5-15.5) % Plt Count 100 L (150-450) k/uL Neutrophils % 85 % Lymphocytes % 6 % Monocytes % 6 % Eosinophils % 1 % Basophils % 0 % Neutrophils # 7.9 H (1.3-7.7) k/uL Lymphocytes # 0.5 L (1.0-4.8) k/uL Monocytes # 0.5 (0-1.0) k/uL Eosinophils # 0.1 (0-0.7) k/uL Basophils # 0.0 (0-0.2) k/uL Anisocytosis Slight Macrocytosis Marked Sodium 136 L (137-145) mmol/L Potassium 5.0 (3.5-5.1) mmol/L Chloride 97 L (98-107) mmol/L Carbon Dioxide 22 (22-30) mmol/L Anion Gap 17 mmol/L BUN 120 H* (9-20) mg/dL Creatinine 2.71 H (0.66-1.25) mg/dL Est GFR (MDRD) Af Amer 27 (>60 ml/min/1.73 sqM) Est GFR (MDRD) Non-Af 22 (>60 ml/min/1.73 sqM) Glucose 122 H (74-99) mg/dL Calcium 9.4 (8.4-10.2) mg/dL Total Bilirubin 1.7 H (0.2-1.3) mg/dL AST 31 (17-59) U/L ALT 32 (21-72) U/L Alkaline Phosphatase 89 (38-126) U/L Total Protein 7.9 (6.3-8.2) g/dL Albumin 4.0 (3.5-5.0) g/dL Amylase 149 H (30-110) U/L Lipase 707 H (23-300) U/L Urine Color Yellow Urine Appearance Clear (Clear) Urine pH 5.0 (5.0-8.0) Ur Specific [place] 1.011 (1.001-1.035) Urine Protein 1+ H (Negative) Urine Glucose (UA) Negative (Negative) Urine Ketones Negative (Negative) Urine Blood Negative (Negative) Urine Nitrite Negative (Negative) Urine Bilirubin Negative (Negative) Urine Urobilinogen <2.0 (<2.0) mg/dL Ur Leukocyte Esterase Negative (Negative) Urine RBC 2 (0-5) /hpf Urine WBC 1 (0-5) /hpf Urine Bacteria Rare H (None) /hpf Hyaline Casts 12 H (0-2) /lpf Urine Mucus Rare H (None) /hpf Disposition Clinical Impression: Inguinal hernia, Abdominal pain, Chronic renal insufficiency Disposition: HOME SELF-CARE Condition: Fair Instructions: Abdominal Pain (ED), Inguinal Hernia (ED) Referrals: Abad Blair DO [Primary Care Provider] - 1-2 days
[2016-12-28 02:13] LABS: Anisocytosis Slight; Basophils % (A) 0 %; CHCM 32.7; Eosinophils # (A) 0.1 k/uL (0-0.7); Eosinophils % (A) 1 %; HCT 31.8 % (39.0-53.0); HDW 3.11; HGB 10.4 gm/dL (13.0-17.5); Luc # (Auto) 0.27; Luc % (Auto) 3; Lymphocytes # (A) 0.5 k/uL (1.0-4.8); Lymphocytes % (A) 6 %; MCH 36.3 pg (25.0-35.0); MCHC 32.7 g/dL (31.0-37.0); MCV 110.9 fL (80.0-100.0); Macrocytosis Marked; Mean Platelet Volume 9.2; Monocytes # (A) 0.5 k/uL (0-1.0); Monocytes % (A) 6 %; Neutrophils # (A) 7.9 k/uL (1.3-7.7); Neutrophils % (A) 85 %; RBC 2.87 m/uL (4.30-5.90); RDW 19.2 % (11.5-15.5); WBC 9.3 k/uL (3.8-10.6); WBC (Perox) 9.13
[2016-12-28 02:14] LABS: Calcium 9.4 mg/dL (8.4-10.2); Total Bilirubin 1.7 mg/dL (0.2-1.3); Total Protein 7.9 g/dL (6.3-8.2)
[2016-12-28 02:59] VITALS: PULSE 60
[2016-12-28 03:09] LABS: Appearance,Urine Clear (Clear); Bacteria,Urine Rare /hpf; Bilirubin,Urine Negative (Negative); Glucose,Urine (UA) Negative (Negative); Ketones,Urine Negative (Negative); Leukocyte Esterase,Urine Negative (Negative); Mucus,Urine Rare /hpf; Nitrite,Urine Negative (Negative); Particle Count 2327; Protein,Urine 1+ (Negative); RBC,Urine 2 /hpf (0-5); Specific Gravity,Urine 1.011 (1.001-1.035); UA Billing (MACRO vs. MICRO) MICRO; Urobilinogen,Urine <2.0 mg/dL (<2.0); WBC,Urine 1 /hpf (0-5)
--- NOTE | 2016-12-28 03:14 | CT ---
EXAM: CT Abdomen and Pelvis Without Intravenous Contrast CLINICAL HISTORY: Reason: Pain TECHNIQUE: Axial computed tomography images of the abdomen and pelvis without intravenous contrast. CTDI is 6.60 mGy and DLP is 314.20 mGy-cm. This CT exam was performed using one or more of the following dose reduction techniques: automated exposure control, adjustment of the mA and/or kV according to patient size, and/or use of iterative reconstruction technique. COMPARISON: 12/21/15 plain films FINDINGS: Lower thorax: Bibasilar fibrosis with peripheral right lower lobe bleb, calcified left lower lobe granulomata, marked cardiomegaly, extensive coronary artery calcifications with previous sternotomy and defibrillator seen along with small amount of pericardial calcification anterior to the left ventricular apex. ABDOMEN: Liver: Gently lobulated hepatic contour with relatively enlarged left lobe, suspect for the presence of cirrhosis. Gallbladder and bile ducts: Unremarkable. No calcified stones. No ductal dilation. Pancreas: Unremarkable. No ductal dilation. Spleen: Borderline splenomegaly measuring 12.9 cm in length. Adrenals: 13 mm left adrenal nodule is indeterminate. Kidneys and ureters: Round bilateral renal lesions, the majority of which are consistent with cysts on this noncontrast exam, measuring up to 7 cm within the lower pole right kidney. There is a small 8-9 mm hyperdense focus along the posterior right lower pole kidney, measuring 60 Hounsfield units. Nonobstructing 3-4 mm right lower pole renal stone. Stomach and bowel: No definite evidence of intestinal obstruction including in relation to small bowel containing right inguinal hernia, without associated proximal dilatation of small bowel. Appendix: No findings to suggest acute appendicitis. PELVIS: Right hip replacement which creates artifact on imaging through the pelvis. Bladder: Incompletely distended, without stone present. Reproductive: Enlarged prostate gland. ABDOMEN and PELVIS: Intraperitoneal space: Small volume of ascites, including perihepatic, dependently within the pelvis, and also seen within the right inguinal hernia. No free air. Bones/joints: Multilevel degenerative changes and mild mid to lower lumbar dextroscoliosis. Subchondral sclerosis within the left femoral head, accompanied by subchondral cyst formation, likely on a degenerative basis rather than the presence of superimposed AVN. Mild sclerosis involving the right superior pubic ramus and symphysis, right inferior pubic ramus and right sacrum, suggesting the presence of healing fractures. Vasculature: Extensive atherosclerotic calcifications including of ectatic distal aorta measuring 2.9 cm transverse on coronal image 38 by 2. 6 cm AP. There is subtle displacement of intimal calcification along its left lateral margin, suggesting either ulcerated plaque or small chronic localized dissection. The common iliac arteries are each mildly enlarged measuring 17 mm in AP diameter. Lymph nodes: No adenopathy is seen. IMPRESSION: 1. Small bowel containing right inguinal hernia which also contains a small amount of adjacent fluid within, without evidence of associated small bowel obstruction present. 2. Possible cirrhosis, with borderline splenomegaly and small volume ascites. 3. Bilateral renal lesions, the majority of which are consistent with cysts, at least one of which is not and may represent a hyperdense cyst or solid lesion. 4. Additional findings as discussed above.
[2016-12-28 03:58] VITALS: BP 124/69; TEMP 98.7
== END 2016-12-28 03:57 | disposition home or self-care (01) ==
LOC: EC 00:42
DX: K40.90 Unilateral inguinal hernia, without obstruction or gangrene, not specified as recurrent (principal); R04.0 Epistaxis; M85.80 Other specified disorders of bone density and structure, unspecified site; I48.91 Unspecified atrial fibrillation; I13.0 Hypertensive heart and chronic kidney disease with heart failure and stage 1 through stage 4 chronic kidney disease, or unspecified chronic kidney disease; N18.9 Chronic kidney disease, unspecified; I50.9 Heart failure, unspecified; I25.10 Atherosclerotic heart disease of native coronary artery without angina pectoris; E78.5 Hyperlipidemia, unspecified; E61.1 Iron deficiency; Z95.1 Presence of aortocoronary bypass graft; Z95.810 Presence of automatic (implantable) cardiac defibrillator; Z88.0 Allergy status to penicillin; Z79.01 Long term (current) use of anticoagulants; Z79.899 Other long term (current) drug therapy; Z87.891 Personal history of nicotine dependence
CPT/HCPCS: 36415; 74176; 80053; 81001; 82150; 83690; 85025; 99284

== ENCOUNTER 2017-03-16 18:30 | Emergency (ER) | payer MEDICARE ==
[2017-03-16] MEDS ORDERED: FUROSEMIDE 10 MG/ML 4 ML VIAL IV STA (18:51)
--- NOTE | 2017-03-16 18:55 | ED ---
General Adult HPI - General Chief complaint: Shortness of Breath Stated complaint: Constipated Time Seen by Provider: 03/16/17 18:35 Source: patient, RN notes reviewed Mode of arrival: wheelchair Limitations: no limitations - History of Present Illness Initial comments: This is an 86-year-old male with past medical history significant for bypass surgery some 35 years ago patient also has a history of congestive heart failure and renal failure. Patient comes in today because she's having shortness of breath and increased pedal edema. Patient states his been ongoing for 5 days and getting progressively worse. Patient states he feels his abdomen getting distended and it typically happens when he is having some fluid overload. Patient denies any recent fever chills or cough. Patient denies any abdominal pain. Patient denies any nausea vomiting diarrhea per patient denies any lightheadedness dizziness or near syncopal episode. - Related Data Home Medications Medication Instructions Recorded Confirmed Allopurinol [Zyloprim] 100 mg PO BID 12/12/14 03/16/17 Pravastatin Sodium [Pravachol] 20 mg PO HS 12/12/14 03/16/17 Timolol 0.5% Ophth Soln [Timoptic 1 drop LEFT EYE QAM 12/12/14 03/16/17 0.5% Ophth Soln] Sennosides-Docusate Sodium 1 tab PO HS 10/26/15 03/16/17 [Senokot-S] ALPRAZolam [Xanax] 0.25 mg PO TID PRN 01/31/16 03/16/17 Nitroglycerin Sl Tabs [Nitrostat] 0.4 mg SUBLINGUAL Q5M PRN 01/31/16 03/16/17 Bisacodyl [Dulcolax] 5 mg PO HS 11/27/16 03/16/17 Calcium Acetate [PhosLo] 667 mg PO W/BRKFST 11/27/16 03/16/17 Folic Acid 0.8 mg PO DAILY 11/27/16 03/16/17 Latanoprost [Xalatan 0.005%] 1 drop BOTH EYES HS 11/27/16 03/16/17 Sodium Chloride 0.65% Nasal [Deep 2 spray EA NOSTRIL QID PRN 11/27/16 03/16/17 Sea (Saline)] Thiamine [Vitamin B-1] 100 mg PO DAILY 11/27/16 03/16/17 Furosemide [Lasix] 40 mg PO DAILY 03/16/17 03/16/17 Previous Rx's Medication Instructions Recorded Metoprolol Tartrate [Lopressor] 25 mg PO BID #60 tab 02/03/16 Spironolactone [Aldactone] 25 mg PO DAILY #30 tab 11/30/16 Allergies Allergy/AdvReac Type Severity Reaction Status Date / Time Penicillins Allergy Rash/Hives Verified 03/16/17 20:13 Review of Systems ROS Statement: Those systems with pertinent positive or pertinent negative responses have been documented in the HPI. ROS Other: All systems not noted in ROS Statement are negative. Past Medical History Past Medical History: Atrial Fibrillation, Coronary Artery Disease (CAD), Cancer , Heart Failure, Hyperlipidemia, Hypertension, Osteoarthritis (OA), Prostate Disorder, Renal Disease Additional Past Medical History / Comment(s): melenoma BPH, gout 5 years ago, glaucoma lt eye,"gets freguent nose bleeds", murmur, rhuematic fever age 19, iron deficiency, rt inguinal hernia. History of Any Multi-Drug Resistant Organisms: None Reported Past Surgical History: AICD, Coronary Bypass/CABG, Heart Catheterization, Hernia Repair, Joint Replacement, Orthopedic Surgery, Pacemaker Additional Past Surgical History / Comment(s): carotid, Triple artery bypass in 1978. left knee right hip replacement. Right carotid endartectomy. pt has hernia Past Anesthesia/Blood Transfusion Reactions: No Reported Reaction Additional Past Anesthesia/Blood Transfusion Reaction / Comment(s): blood transfusion-no reaction Type of Cardiac Device: Permanent Pacemaker, AICD Device Placement Date:: 2011 Past Psychological History: No Psychological Hx Reported Smoking Status: Former smoker Past Alcohol Use History: Occasional Past Drug Use History: None Reported - Past Family History Father Family Medical History: Coronary Artery Disease (CAD), CVA/TIA Additional Family Medical History / Comment(s): CABG Mother Family Medical History: Congestive Heart Failure (CHF), CVA/TIA, Hypertension Brother(s) Family Medical History: Congestive Heart Failure (CHF) Additional Family Medical History / Comment(s): CABG, valve replacement General Exam - General Exam Comments Initial Comments: GENERAL: Patient is well-developed and well-nourished. Patient is nontoxic and well- hydrated and is in mild distress. ENT: Neck is soft and supple. No significant lymphadenopathy is noted. Oropharynx is clear. Moist mucous membranes. Neck has full range of motion without eliciting any pain. EYES: The sclera were anicteric and conjunctiva were pink and moist. Extraocular movements were intact and pupils were equal round and reactive to light. Eyelids were unremarkable. PULMONARY: Patient has crackles at bilateral bases CARDIOVASCULAR: There is a regular rate and rhythm without any murmurs gallops or rubs. ABDOMEN: Soft and nontender with normal bowel sounds. No palpable organomegaly was noted. There is no palpable pulsatile mass. SKIN: Skin is clear with no lesions or rashes and otherwise unremarkable. NEUROLOGIC: Patient is alert and oriented x3. Cranial nerves II through XII are grossly intact. Motor and sensory are also intact. Normal speech, volume and content. Symmetrical smile. MUSCULOSKELETAL: Normal extremities with adequate strength and full range of motion. 2+ pedal edema LYMPHATICS: No significant lymphadenopathy is noted PSYCHIATRIC: Normal psychiatric evaluation. Limitations: no limitations Course Vital Signs 03/16/17 03/16/17 03/16/17 18:33 19:13 20:04 Temperature 97.0 F L Pulse Rate 61 60 Respiratory 18 20 16 Rate Blood Pressure 112/59 113/65 O2 Sat by Pulse 97 100 Oximetry Medical Decision Making - Medical Decision Making EKG shows paced rhythm at 62 bpm urine is 166 QT intervals 514 and QTC is 521. Chest x-ray shows slight improvement from the previous chest x-ray for a period I went back and reevaluate the patient after the Lasix he stated he did feel better. Patient states he didn't think he needed to be admitted to hospital and in fact he thought going home and taking little more Lasix in the evening was a good idea and he would follow-up with his primary medical care doctor. - Lab Data Result diagrams: 03/16/17 19:25 03/16/17 19:25 Lab Results 03/16/17 03/16/17 03/16/17 Range/Units 19:25 19:25 19:25 WBC 6.7 (3.8-10.6) k/uL RBC 3.41 L (4.30-5.90) m/uL Hgb 11.8 L (13.0-17.5) gm/dL Hct 38.5 L (39.0-53.0) % MCV 112.7 H (80.0-100.0) fL MCH 34.5 (25.0-35.0) pg MCHC 30.7 L (31.0-37.0) g/dL RDW 20.1 H (11.5-15.5) % Plt Count 84 L (150-450) k/uL Neutrophils % 80 % Lymphocytes % 7 % Monocytes % 7 % Eosinophils % 2 % Basophils % 1 % Neutrophils # 5.3 (1.3-7.7) k/uL Lymphocytes # 0.5 L (1.0-4.8) k/uL Monocytes # 0.5 (0-1.0) k/uL Eosinophils # 0.2 (0-0.7) k/uL Basophils # 0.0 (0-0.2) k/uL Manual Slide Review Performed Hypochromasia Slight Anisocytosis Moderate Macrocytosis Marked PT (9.0-12.0) sec INR (<1.2) APTT (22.0-30.0) sec Sodium 137 (137-145) mmol/L Potassium 5.2 H (3.5-5.1) mmol/L Chloride 100 (98-107) mmol/L Carbon Dioxide 21 L (22-30) mmol/L Anion Gap 16 mmol/L BUN 95 H* (9-20) mg/dL Creatinine 2.43 H (0.66-1.25) mg/dL Est GFR (MDRD) Af Amer 31 (>60 ml/min/1.73 sqM) Est GFR (MDRD) Non-Af 25 (>60 ml/min/1.73 sqM) Glucose 99 (74-99) mg/dL Calcium 9.8 (8.4-10.2) mg/dL Magnesium 2.3 (1.6-2.3) mg/dL Total Bilirubin 2.1 H (0.2-1.3) mg/dL AST 28 (17-59) U/L ALT 31 (21-72) U/L Alkaline Phosphatase 101 (38-126) U/L Total Creatine Kinase 46 L (55-170) U/L CK-MB (CK-2) 3.1 H* (0.0-2.4) ng/mL CK-MB (CK-2) Rel Index 6.7 Troponin I 0.057 H* (0.000-0.034) ng/mL NT-Pro-B Natriuret Pep pg/mL Total Protein 8.2 (6.3-8.2) g/dL Albumin 4.0 (3.5-5.0) g/dL 03/16/17 03/16/17 Range/Units 19:25 19:25 WBC (3.8-10.6) k/uL RBC (4.30-5.90) m/uL Hgb (13.0-17.5) gm/dL Hct (39.0-53.0) % MCV (80.0-100.0) fL MCH (25.0-35.0) pg MCHC (31.0-37.0) g/dL RDW (11.5-15.5) % Plt Count (150-450) k/uL Neutrophils % % Lymphocytes % % Monocytes % % Eosinophils % % Basophils % % Neutrophils # (1.3-7.7) k/uL Lymphocytes # (1.0-4.8) k/uL Monocytes # (0-1.0) k/uL Eosinophils # (0-0.7) k/uL Basophils # (0-0.2) k/uL Manual Slide Review Hypochromasia Anisocytosis Macrocytosis PT 13.5 H (9.0-12.0) sec INR 1.4 H (<1.2) APTT 32.4 H (22.0-30.0) sec Sodium (137-145) mmol/L Potassium (3.5-5.1) mmol/L Chloride (98-107) mmol/L Carbon Dioxide (22-30) mmol/L Anion Gap mmol/L BUN (9-20) mg/dL Creatinine (0.66-1.25) mg/dL Est GFR (MDRD) Af Amer (>60 ml/min/1.73 sqM) Est GFR (MDRD) Non-Af (>60 ml/min/1.73 sqM) Glucose (74-99) mg/dL Calcium (8.4-10.2) mg/dL Magnesium (1.6-2.3) mg/dL Total Bilirubin (0.2-1.3) mg/dL AST (17-59) U/L ALT (21-72) U/L Alkaline Phosphatase (38-126) U/L Total Creatine Kinase (55-170) U/L CK-MB (CK-2) (0.0-2.4) ng/mL CK-MB (CK-2) Rel Index Troponin I (0.000-0.034) ng/mL NT-Pro-B Natriuret Pep 56774 pg/mL Total Protein (6.3-8.2) g/dL Albumin (3.5-5.0) g/dL Disposition Clinical Impression: Fluid overload Disposition: HOME SELF-CARE Instructions: Leg Edema (ED) Additional Instructions: Patient should take an extra 20 mg of Lasix at dinnertime follow-up with the physician on Monday Referrals: Abad Blair DO [Primary Care Provider] - 1-2 days Time of Disposition: 20:52
[2017-03-16 19:45] LABS: Anisocytosis Moderate; Basophils % (A) 1 %; CH 35.6; CHCM 31.9; Eosinophils # (A) 0.2 k/uL (0-0.7); Eosinophils % (A) 2 %; HCT 38.5 % (39.0-53.0); HDW 3.14; HGB 11.8 gm/dL (13.0-17.5); Hypochromasia Slight; Luc # (Auto) 0.21; Luc % (Auto) 3; Lymphocytes # (A) 0.5 k/uL (1.0-4.8); Lymphocytes % (A) 7 %; MCH 34.5 pg (25.0-35.0); MCHC 30.7 g/dL (31.0-37.0); MCV 112.7 fL (80.0-100.0); Macrocytosis Marked; Mean Platelet Volume 10.7; Monocytes # (A) 0.5 k/uL (0-1.0); Monocytes % (A) 7 %; Neutrophils # (A) 5.3 k/uL (1.3-7.7); Neutrophils % (A) 80 %; RBC 3.41 m/uL (4.30-5.90); RDW 20.1 % (11.5-15.5); WBC 6.7 k/uL (3.8-10.6); WBC (Perox) 7.06
--- NOTE | 2017-03-16 19:49 | XR ---
EXAMINATION TYPE: XR chest 2V DATE OF EXAM: 03/16/2017 COMPARISON: 11/27/2016 HISTORY: Weakness TECHNIQUE: Frontal and lateral views of the chest are obtained. FINDINGS: Heart is enlarged. There is mild pulmonary vascular congestion. Thoracic aorta is atheroma tous. There are sternal wires. There is left axillary pacemaker with the lead tips in the right ventr icle. There is no definite pleural effusion. IMPRESSION: Cardiomegaly. There is probably mild heart failure without change compared to last exam. Pulmonary fibrosis.
[2017-03-16 19:55] LABS: INR 1.4 (<1.2); Manual Review Performed; Partial Thromboplastin Time 32.4 sec (22.0-30.0); Prothrombin Time 13.5 sec (9.0-12.0)
[2017-03-16 20:04] LABS: Potassium 5.2 mmol/L (3.5-5.1)
[2017-03-16 20:05] LABS: Calcium 9.8 mg/dL (8.4-10.2); Magnesium 2.3 mg/dL (1.6-2.3); Total Bilirubin 2.1 mg/dL (0.2-1.3); Total Protein 8.2 g/dL (6.3-8.2)
[2017-03-16 20:25] LABS: Creatine Kinase MB 3.1 ng/mL (0.0-2.4); Troponin I 0.057 ng/mL (0.000-0.034)
[2017-03-16 21:13] VITALS: BP 118/68; PULSE 62; RESP 18; TEMP 96.9
== END 2017-03-16 21:23 | disposition home or self-care (01) ==
LOC: EC 18:30
DX: E87.70 Fluid overload, unspecified (principal); E78.5 Hyperlipidemia, unspecified; I11.0 Hypertensive heart disease with heart failure; I50.9 Heart failure, unspecified; I25.10 Atherosclerotic heart disease of native coronary artery without angina pectoris; N19 Unspecified kidney failure; M10.9 Gout, unspecified; Z87.891 Personal history of nicotine dependence; Z79.899 Other long term (current) drug therapy; Z88.0 Allergy status to penicillin; Z86.69 Personal history of other diseases of the nervous system and sense organs
CPT/HCPCS: 36415; 93005; 83880; 80053; 82550; 82553; 83735; 84484; 85025; 85610; 85730; 71020; 99285; 96374; J1940

== ENCOUNTER 2017-03-23 08:57 | Day surgery (SDC) | payer MEDICARE ==
[2017-03-20 10:41] VITALS: BMI 24.0
[~2017-03-23 08:57] MED LIST: CLINDAMYCIN 600 MG in SODIUM CHLORIDE 0.9% IRRIGATIO 250 ML IRRIGATION ONE; CLINDAMYCIN 900 MG in DEXTROSE 5% IN WATER 50 ML IVPB ONE
[2017-03-23] MEDS: SODIUM CHLORIDE 0.9% 1,000 ML IV SCH (09:36)
[2017-03-23 09:37] LABS: Anisocytosis Slight; Aty Lym Flag Slight; Basophils % (A) 0 %; CH 34.7; CHCM 30.3; Eosinophils # (A) 0.2 k/uL (0-0.7); Eosinophils % (A) 3 %; HCT 38.3 % (39.0-53.0); HDW 3.01; HGB 11.6 gm/dL (13.0-17.5); Hypochromasia Marked; Luc % (Auto) 5; Lymphocytes # (A) 0.5 k/uL (1.0-4.8); Lymphocytes % (A) 9 %; MCH 34.9 pg (25.0-35.0); MCHC 30.2 g/dL (31.0-37.0); MCV 115.7 fL (80.0-100.0); Macrocytosis Marked; Mean Platelet Volume 9.5; Monocytes # (A) 0.5 k/uL (0-1.0); Monocytes % (A) 9 %; Neutrophils # (A) 4.4 k/uL (1.3-7.7); Neutrophils % (A) 74 %; RBC 3.31 m/uL (4.30-5.90); RDW 19.9 % (11.5-15.5); WBC 5.9 k/uL (3.8-10.6); WBC (Perox) 6.06
[2017-03-23 10:03] LABS: Manual Review Performed
[2017-03-23 10:34] LABS: Calcium 9.3 mg/dL (8.4-10.2); Potassium 4.6 mmol/L (3.5-5.1)
[2017-03-23] MEDS ORDERED: fentaNYL (PF) 50 MCG/ML 2 ML AMP ONE (10:48)
[2017-03-23] MEDS: fentaNYL (PF) 50 MCG/ML 2 ML AMP IV ONE ×2 (10:51→11:38)
[2017-03-23] MEDS ORDERED: MIDAZOLAM 2 MG/2 ML VIAL ONE (11:27)
[2017-03-23] MEDS ORDERED: MIDAZOLAM 2 MG/2 ML VIAL IV ONE (11:32)
[2017-03-23] MEDS ORDERED: LIDOCAINE 1% INJ 10MG/ML (20 ML MDV) SQ ONE (11:34)
--- NOTE | 2017-03-23 12:27 | P.PCN ---
Preoperative Diagnosis: Patient underwent EP procedure under conscious sedation/moderate sedation, monitoring of the level of consciousness and physiologic parameters including but not limited to vital signs and oxygenation. Patient tolerated the procedure well without any acute complications. Start time: 1105 Stop time: 121 Explantation of a Bi V ICD generator change, 95911 Implantation of a new Bi V pacemaker generator, [id number] Indication for the procedure Generator at [place], pacemaker dependent patient History of congestive heart failure class II, complete heart block status post LAP LAYER , ischemic cardiomyopathy prior coronary artery bypass grafting, hypertension, dyslipidemia left radical ejection fraction 25% him a atrial fibrillation, persistent, history of pulmonary edema
[2017-03-23] MEDS ORDERED: ACETAMINOPHEN TAB 325 MG TAB PO PRN (12:32)
[2017-03-23] MEDS ORDERED: HYDROcodone/APAP 5-325MG 1 EACH TAB PO PRN (12:32)
[2017-03-23] MEDS ORDERED: ACETAMINOPHEN IV (For NPO) 1,000 MG in EMPTY BAG 1 BAG IVPB ONE (12:32)
[2017-03-23] MEDS: FUROSEMIDE 20 MG TAB PO SCH (14:18)
[2017-03-23] MEDS: CLINDAMYCIN 900 MG in DEXTROSE 5% IN WATER 50 ML IVPB SCH ×2 (17:59)
[2017-03-23] MEDS: METOPROLOL TARTRATE 25 MG TAB PO SCH (20:27)
[2017-03-23] MEDS ORDERED: PRAVASTATIN SODIUM 20 MG TAB PO SCH (21:00)
[2017-03-23] MEDS ORDERED: LATANOPROST 0.005% OPHTH DROPS 2.5 ML BTL BOTH EYES SCH (21:00)
[2017-03-24] MEDS: CLINDAMYCIN 900 MG in DEXTROSE 5% IN WATER 50 ML IVPB SCH ×6 (00:02→11:50)
[2017-03-24] MEDS: SODIUM CHLORIDE 0.9% 1,000 ML IV SCH (01:56)
[2017-03-24 03:48] VITALS: PULSE 60
[2017-03-24] MEDS: METOPROLOL TARTRATE 25 MG TAB PO SCH (08:09)
--- NOTE | 2017-03-24 08:55 | P.NPCON ---
History of Present Illness - Reason for Consult chronic renal failure - History of Present Illness Reason for consultation: Chronic kidney disease History of present illness: Patient is a 86-year-old male seen in renal consultation for chronic kidney disease. 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 He follows with us as an outpatient. His baseline creatinine is in the range of 2.5-3. He plans on doing peritoneal dialysis and is already seen Dr. Cobos for consultation regarding catheter placement. Patient has history of systolic CHF with ejection fraction of 25%. Patient presented to the hospital to get the battery changed of his defibrillator. He is currently sitting up in bed. Denies chest pain or shortness of breath. Admits to good urine output. No vomiting or diarrhea. Currently having breakfast. Denies any melena or hematochezia. No other signs or symptoms of bleeding .Vital signs are stable. General: The patient appeared well nourished and normally developed. HEENT: Head exam is unremarkable. Neck is without jugular venous distension. LUNGS: Lungs are clear to auscultation and percussion. Breath sounds decreased. HEART: Rate and Rhythm are regular. First and second heart sounds normal. No murmurs, rubs or gallops. ABDOMEN: Abdominal exam reveals normal bowel sounds. Non-tender and non- distended. No evidence of peritonitis. EXTREMITITES: No clubbing, cyanosis, or edema. Past Medical History Past Medical History: Cancer, Osteoarthritis (OA), Prostate Disorder, Renal Disease Additional Past Medical History / Comment(s): SEE DR RUFFIN'S H&P, melenoma, gout, glaucoma lt eye, rhuematic fever age 19, iron deficiency, rt inguinal hernia. History of Any Multi-Drug Resistant Organisms: None Reported Past Surgical History: AICD, Coronary Bypass/CABG, Heart Catheterization, Hernia Repair, Joint Replacement, Orthopedic Surgery, Pacemaker Additional Past Surgical History / Comment(s): Triple artery bypass in 1978. left knee,right hip replacement. Right carotid endartectomy Past Anesthesia/Blood Transfusion Reactions: No Reported Reaction Additional Past Anesthesia/Blood Transfusion Reaction / Comment(s): blood transfusion-no reaction Type of Cardiac Device: Permanent Pacemaker, AICD Device Placement Date:: 2011 Past Psychological History: Anxiety Additional Psychological History / Comment(s): OCCASIONAL Smoking Status: Unknown if ever smoked Past Alcohol Use History: Rare Additional Past Alcohol Use History / Comment(s): started smoking here and there at age 16 but strted smoking daily at age 22 1ppd, quit age 36 Past Drug Use History: None Reported - Past Family History Father Family Medical History: Coronary Artery Disease (CAD), CVA/TIA Additional Family Medical History / Comment(s): CABG Mother Family Medical History: Congestive Heart Failure (CHF), CVA/TIA, Hypertension Brother(s) Family Medical History: Congestive Heart Failure (CHF) Additional Family Medical History / Comment(s): CABG, valve replacement Medications and Allergies Home Medications Medication Instructions Recorded Confirmed Type Allopurinol [Zyloprim] 100 mg PO BID 12/12/14 03/23/17 History Pravastatin Sodium [Pravachol] 20 mg PO HS 12/12/14 03/23/17 History Timolol 0.5% Ophth Soln [Timoptic 1 drop LEFT EYE QAM 12/12/14 03/23/17 History 0.5% Ophth Soln] Sennosides-Docusate Sodium 1 tab PO HS 10/26/15 03/23/17 History [Senokot-S] ALPRAZolam [Xanax] 0.25 mg PO TID PRN 01/31/16 03/23/17 History Nitroglycerin Sl Tabs [Nitrostat] 0.4 mg SUBLINGUAL Q5M PRN 01/31/16 03/23/17 History Metoprolol Tartrate [Lopressor] 25 mg PO BID #60 tab 02/03/16 03/23/17 Rx Bisacodyl [Dulcolax] 5 mg PO HS 11/27/16 03/23/17 History Calcium Acetate [PhosLo] 667 mg PO W/BRKFST 11/27/16 03/23/17 History Folic Acid 0.8 mg PO DAILY 11/27/16 03/23/17 History Latanoprost [Xalatan 0.005%] 1 drop BOTH EYES HS 11/27/16 03/23/17 History Sodium Chloride 0.65% Nasal [Deep 2 spray EA NOSTRIL QID PRN 11/27/16 03/23/17 History Sea (Saline)] Thiamine [Vitamin B-1] 100 mg PO DAILY 11/27/16 03/23/17 History Spironolactone [Aldactone] 25 mg PO DAILY #30 tab 11/30/16 03/23/17 Rx Furosemide [Lasix] 40 mg PO DAILY 03/16/17 03/23/17 History Furosemide [Lasix] 20 mg PO AC-LUNCH 03/20/17 03/23/17 History Allergies Allergy/AdvReac Type Severity Reaction Status Date / Time Penicillins Allergy Rash/Hives Verified 03/23/17 09:09 Physical Exam Vitals: Vital Signs Temp Pulse Pulse Resp BP BP Pulse Ox 03/24/17 07:46 97.6 F 60 16 100/61 98 03/24/17 03:45 60 18 03/24/17 03:15 97.9 F 67 18 99/61 100 03/24/17 00:00 97.8 F 60 18 117/72 99 03/23/17 20:00 60 18 03/23/17 19:49 97.9 F 61 18 107/64 98 03/23/17 15:45 60 109/64 97 03/23/17 14:45 57 L 116/64 99 03/23/17 14:15 57 L 102/57 97 03/23/17 13:45 60 104/58 99 03/23/17 13:30 60 98/63 100 03/23/17 13:15 60 108/62 99 03/23/17 12:56 97.5 F L 60 18 107/64 98 03/23/17 09:39 97.7 F 62 18 119/65 99 Intake and Output 03/23/17 03/24/17 03/24/17 22:59 06:59 14:59 Intake Total 300 600 Balance 300 600 Intake: Intake, IV Titration 200 Amount Clindamycin 900 mg In 200 Dextrose 5% in Water 50 ml @ 100 mls/hr IVPB Q6HR [facility] Rx#:[id number] Oral 300 400 Other: Voiding Method Urinal Urinal # Voids 1 3 Results - Lab Results Most recent lab results Calcium 9.3 mg/dL (8.4-10.2) 03/23/17 10:15 03/23/17 09:20 03/23/17 10:15 Assessment and Plan Plan: Assessment: #1. Chronic kidney disease stage IV secondary to chronic NSAID use of interstitial nephritis. Baseline creatinine in the range of 2.5-3. GFR at baseline. BUN elevated at 106. His prior values were quite elevated as well, which is due to diuresis and CKD. There is no signs of bleeding. He is not on any steroids. #2. Chronic systolic heart failure with ejection fraction of 25%. He is status post battery change of history for bladder. Plan: I will decrease the frequency of Lasix to 40 mg every other day. Potential discharge today. He will need to follow-up as an outpatient in the next 1-2 weeks. Continue to monitor renal function and urine output. When the need arises, PD will be initiated. Thank you for the consultation. I will continue to follow the patient with you during his hospital stay.
[2017-03-24] MEDS ORDERED: SPIRONOLACTONE 25 MG TAB PO SCH (09:00)
[2017-03-24] MEDS ORDERED: TIMOLOL 0.5% OPHTH DROPS 5 ML BTL LEFT EYE SCH (09:00)
[2017-03-24] MEDS ORDERED: FUROSEMIDE 40 MG TAB PO SCH (09:00)
[2017-03-24 11:43] VITALS: BP 107/69; RESP 18; TEMP 97.5
[2017-03-24] MEDS: FUROSEMIDE 20 MG TAB PO SCH (11:50)
[2017-03-24] MEDS ORDERED: THIAMINE 100 MG TAB PO SCH (12:00)
--- NOTE | 2017-03-24 12:13 | P.DS ---
Providers Attending physician: David Ledesma Primary care physician: Abad Blair [facility] Course: Patient is doing well. He is sitting up comfortably in at the edge of the bed. No chest discomfort. Mild discomfort over the ICD site breath sounds are reduced bilaterally but he has no cough no expectoration. He looks well. Temperature 97.5F, pulse rate in the 60s, blood pressure 107/69 mmHg Breath sounds are reduced bilaterally but no rhonchi no crackles Soft heart sounds no murmurs Impression Severe ischemic adenopathy Class II CHF Complete heart block Status post generator change, biventricular pacemaker implanted for heart failure management and complete heart block Plan Patient may go home today after completion of IV antibiotics and follow-up in the office in 5 days and follow up with primary plate keeper as scheduled No consults ordered by myself Patient Condition at Discharge: Stable Plan - Discharge Summary New Discharge Prescriptions: No Action Allopurinol [Zyloprim] 100 mg PO BID Pravastatin Sodium [Pravachol] 20 mg PO HS Timolol 0.5% Ophth Soln [Timoptic 0.5% Ophth Soln] 1 drop LEFT EYE QAM Sennosides-Docusate Sodium [Senokot-S] 1 tab PO HS Nitroglycerin Sl Tabs [Nitrostat] 0.4 mg SUBLINGUAL Q5M PRN PRN Reason: Chest Pain ALPRAZolam [Xanax] 0.25 mg PO TID PRN PRN Reason: Anxiety Metoprolol Tartrate [Lopressor] 25 mg PO BID #60 tab Latanoprost [Xalatan 0.005%] 1 drop BOTH EYES HS Bisacodyl [Dulcolax] 5 mg PO HS Calcium Acetate [PhosLo] 667 mg PO W/BRKFST Thiamine [Vitamin B-1] 100 mg PO DAILY Folic Acid 0.8 mg PO DAILY Sodium Chloride 0.65% Nasal [Deep Sea (Saline)] 2 spray EA NOSTRIL QID PRN PRN Reason: Dry Nasal Passages Spironolactone [Aldactone] 25 mg PO DAILY #30 tab Furosemide [Lasix] 40 mg PO W/BRKFST Furosemide [Lasix] 20 mg PO AC-LUNCH Discharge Medication List Allopurinol [Zyloprim] 100 mg PO BID 12/12/14 [History] Pravastatin Sodium [Pravachol] 20 mg PO HS 12/12/14 [History] Timolol 0.5% Ophth Soln [Timoptic 0.5% Ophth Soln] 1 drop LEFT EYE QAM 12/12/14 [History] Sennosides-Docusate Sodium [Senokot-S] 1 tab PO HS 10/26/15 [History] ALPRAZolam [Xanax] 0.25 mg PO TID PRN 01/31/16 [History] Nitroglycerin Sl Tabs [Nitrostat] 0.4 mg SUBLINGUAL Q5M PRN 01/31/16 [History] Metoprolol Tartrate [Lopressor] 25 mg PO BID #60 tab 02/03/16 [Rx] Bisacodyl [Dulcolax] 5 mg PO HS 11/27/16 [History] Calcium Acetate [PhosLo] 667 mg PO W/BRKFST 11/27/16 [History] Folic Acid 0.8 mg PO DAILY 11/27/16 [History] Latanoprost [Xalatan 0.005%] 1 drop BOTH EYES HS 11/27/16 [History] Sodium Chloride 0.65% Nasal [Deep Sea (Saline)] 2 spray EA NOSTRIL QID PRN 11/27 [History] Thiamine [Vitamin B-1] 100 mg PO DAILY 11/27/16 [History] Spironolactone [Aldactone] 25 mg PO DAILY #30 tab 11/30/16 [Rx] Furosemide [Lasix] 40 mg PO W/BRKFST 03/16/17 [History] Furosemide [Lasix] 20 mg PO AC-LUNCH 03/20/17 [History] Follow up Appointment(s)/Referral(s): Inga Moe MD [STAFF PHYSICIAN] - 1 Week (Office will call for follow up appointment.)
--- NOTE | 2017-03-28 12:55 | P.PCN ---
Preoperative Diagnosis: Patient underwent EP procedure under conscious sedation/moderate sedation, monitoring of the level of consciousness and physiologic parameters including but not limited to vital signs and oxygenation. Patient tolerated the procedure well without any acute complications. Start time: 1105 Stop time: 1214
--- NOTE | 2017-03-28 14:06 | CE ---
CARDIAC ELECTROPHYSIOLOGY REPORT BIVENTRICULAR ICD GENERATOR CHANGE: Imer George is an 86-year-old male patient whom who has a biventricular ICD for heart failure management. The biventricular ICD was explanted, a biventricular pacemaker was implanted for continued heart failure management with medical therapy for risk of sudden cardiac . The patient was brought to the EP Lab in a fasting state. Written informed consent was obtained prior to the procedure. Incision made directly over the generator and current level of the generator, the generator was explanted. This was a Medtronic, model #D334 TRG, serial #[id number]. This was originally implanted on January 2012. The new generator was implanted. This was a [employer]. The biventricular pacemaker generator was implanted [id number], serial #[id number], the DF leads were capped and secured to the pectoralis muscle. The atrial lead was a Medtronic, model #5076, serial # [id number], The RV lead was a Medtronic model #6949, serial #[id number], pacing impedance 450 ohms, pacing threshold 1 V at 0.4 mS, LV pacing lead was a Medtronic model #4396, serial #[id number], pacing impedance 750 ohms, pacing threshold 1 V at 0.4 mS. The patient had complete heart block, a light heart block with 100% RV and LV pacing. Patient tolerated the procedure well without any acute complications. The wound was closed in 3 layers and dressed per protocol. IMPRESSION: 1. Explantation of biventricular ICD generator. 2. Implantation of a biventricular pacemaker generator. MMODL / IJN: [id number] /
== END 2017-03-24 13:57 | disposition home or self-care (01) ==
LOC: CATHEP 08:57 → 3OBS 12:14 → CATHEP 03-24 13:57
PROVIDERS: ATTEND Internal Medicine Clinical Cardiac Electrophysiology
DX: Z45.02 Encounter for adjustment and management of automatic implantable cardiac defibrillator (principal); I48.2 Chronic atrial fibrillation; I48.0 Paroxysmal atrial fibrillation; I50.22 Chronic systolic (congestive) heart failure; I13.0 Hypertensive heart and chronic kidney disease with heart failure and stage 1 through stage 4 chronic kidney disease, or unspecified chronic kidney disease; I25.5 Ischemic cardiomyopathy; I44.2 Atrioventricular block, complete; N12 Tubulo-interstitial nephritis, not specified as acute or chronic; N18.4 Chronic kidney disease, stage 4 (severe); Z95.1 Presence of aortocoronary bypass graft; Z95.810 Presence of automatic (implantable) cardiac defibrillator; I25.10 Atherosclerotic heart disease of native coronary artery without angina pectoris; F41.9 Anxiety disorder, unspecified; I42.9 Cardiomyopathy, unspecified; E78.5 Hyperlipidemia, unspecified; Z88.0 Allergy status to penicillin; Z87.891 Personal history of nicotine dependence; Z96.641 Presence of right artificial hip joint; Z96.652 Presence of left artificial knee joint; Z79.899 Other long term (current) drug therapy; Z82.49 Family history of ischemic heart disease and other diseases of the circulatory system; T39.395A Adverse effect of other nonsteroidal anti-inflammatory drugs [NSAID], initial encounter
CPT/HCPCS: 33229; 99153 ×4; 99152; 80048; 85025; C2621; J2250; J2001; J3010